=== PATIENT | female | born 1970 | race Caucasian/White ===

== ENCOUNTER 2021-03-01 15:19 | Outpatient (CLI) | payer OTHER, SELFPAY ==
--- NOTE | ~2021-03-01 | XR_ITS ---
EXAMINATION: XR hand BI arthritis min 3V EXAM DATE: 03/01/2021 15:55 INDICATION: Rheumatoid arthritis multiple sites with negative rheumatoid factor. TECHNIQUE: Right hand frontal, lateral and oblique projections obtained and reviewed. Left hand fron lyudmila, lateral and oblique projections obtained and reviewed. Catchers projection of both hands. Compar deborah is made to prior examination from 02/14/2006. FINDINGS: Right hand: There are no bony erosions identified. Minimal osteoarthritis of the 2nd and 3rd distal i nterphalangeal joints.There are no acute fractures identified. No radiopaque foreign bodies identifie d. Left hand: There are no bony erosions identified. The joint spaces are uniform. There are no acute fractures identified. No radiopaque foreign bodies identified. IMPRESSION: 1. Minimal right 2nd, 3rd DIP osteoarthritis. 2. No erosions. Reviewed, dictated and finalized at location A.
== END 2021-03-01 15:20 | disposition home or self-care (01) ==
PROVIDERS: PCP Family Medicine
DX: M06.09 Rheumatoid arthritis without rheumatoid factor, multiple sites (principal)
CPT/HCPCS: 73130

== ENCOUNTER 2023-03-17 13:45 | Outpatient (CLI) | payer OTHER, SELFPAY ==
--- NOTE | ~2023-03-17 | XR_ITS ---
EXAM: XR foot RT min 3V DATE: 03/17/2023 14:08 HISTORY: HIGH RISK MEDICATION USE, PAIN OF RT KNEE/FOOT . COMPARISON: None available. FINDINGS: Normal mineralization. No fracture or dislocation. No lytic or blastic lesion. Mild degene rative change at the first MTP joint and multiple midfoot joints. Moderate plantar and mild Achilles enthesopathy. No erosion or periosteal change. Soft tissues within normal limits. IMPRESSION: Mild particular osteoarthritis in the right foot. Reviewed, dictated and finalized at location K. ARD/STEWARDESS SECOND CLASS
--- NOTE | ~2023-03-17 | XR_ITS ---
EXAM: XR hand RT min 3V DATE: 03/17/2023 14:08 HISTORY: HIGH RISK MEDICATION USE, PAIN OF RT KNEE/FOOT . COMPARISON: None available. FINDINGS: Normal mineralization. No fracture or dislocation. No lytic or blastic lesion. Scattered m ild degenerative changes, typical of osteoarthritis, best seen in the DIP and PIP joints of the finge rs. No erosion or periosteal change. Soft tissues within normal limits. IMPRESSION: Mild polyarticular osteoarthritis. Reviewed, dictated and finalized at location K. [employer]
--- NOTE | ~2023-03-17 | XR_ITS ---
EXAM: XR knee RT 3V DATE: 03/17/2023 14:08 HISTORY: HIGH RISK MEDICATION USE, PAIN OF RT KNEE/FOOT . COMPARISON: 09/02/2011. FINDINGS: Decreased mineralization. Status post ACL repair. Tricompartmental osteophytosis, moderate in the medial and lateral compartments, severe in the patellofemoral compartment. Moderate lateral c ompartment joint space narrowing. Medial and lateral compartment chondrocalcinosis. IMPRESSION: Tricompartmental arthritic changes in the right knee, severe in the patellofemoral compar tment. Reviewed, dictated and finalized at location K. UAGE TEACHER IMPRESSION: Tricompartmental arthritic changes in the right knee, severe in the patellofemoral compartment.
--- NOTE | ~2023-03-17 | XR_ITS ---
EXAM: XR hand LT min 3V DATE: 03/17/2023 14:08 HISTORY: HIGH RISK MEDICATION USE, PAIN OF RT KNEE/FOOT . COMPARISON: 03/01/2021. FINDINGS: Normal mineralization. No fracture or dislocation. No lytic or blastic lesion. Scattered m ild arthritic changes, typical of osteoarthritis, best seen in the PIP joints and DIP joints of the f ingers. No erosion or periosteal change. Soft tissues within normal limits. IMPRESSION: Mild polyarticular osteoarthritis. Reviewed, dictated and finalized at location K. RS ASSEMBLER
== END 2023-03-17 13:46 | disposition home or self-care (01) ==
LOC: ANHIMG 13:47
PROVIDERS: PCP Family Medicine; Visit Provider Family Medicine
DX: Z79.899 Other long term (current) drug therapy (principal); M19.071 Primary osteoarthritis, right ankle and foot; M19.041 Primary osteoarthritis, right hand; M19.042 Primary osteoarthritis, left hand; M17.11 Unilateral primary osteoarthritis, right knee
CPT/HCPCS: 73130; 73562; 73630

== ENCOUNTER 2024-02-15 13:59 | Emergency (ER) | payer OTHER, SELFPAY ==
--- NOTE | ~2024-02-15 | XR_ITS ---
EXAMINATION: XR chest 2V 02/15/2024 14:43 INDICATION: Cough with wheezing PROCEDURE: 2 view chest COMPARISON: 03/10/2011 FINDINGS: The lungs are clear. The cardiomediastinal silhouette is within normal limits. There are no pleural effusions. There is no pneumothorax suspected. IMPRESSION: 1: NO ACUTE CARDIOPULMONARY DISEASE. Reviewed, dictated and finalized at location B.
--- NOTE | 2024-02-15 14:12 | ED.URI ---
HPI - URI/Sore Throat General Chief Complaint: Upper Respiratory Infection Stated Complaint: SOB Time Seen by Provider: 02/15/24 14:18 Source: patient, RN notes reviewed and old records reviewed Mode of arrival: ambulatory Limitations: no limitations History of Present Illness HPI Narrative: 53-year-old female presents to the [facility] with complaints of cough since Sunday, 2 days, wheezing at night. Has tried Sudafed and Zyrtec Related Data Home Medications Medication Instructions Recorded Confirmed cetirizine 10 mg capsule (Zyrtec) 10 mg PO DAILY PRN Allergy Symptoms 11/07/23 02/15/24 etanercept 50 mg/mL (1 mL) 50 mg subcut WEEKLY 11/07/23 02/15/24 subcutaneous syringe (Enbrel) multivitamin 1 tablet PO DAILY 11/07/23 02/15/24 pantoprazole 40 mg tablet,delayed 40 mg PO QAM 11/07/23 02/15/24 release pilocarpine HCl 5 mg tablet 5 mg PO TID 11/07/23 02/15/24 pseudoephedrine HCl 30 mg tablet 30 mg PO Q4-6H PRN Allergy Symptoms 11/07/23 02/15/24 (Sudafed) sulfasalazine 500 mg tablet 1 g PO BID 11/07/23 02/15/24 Allergies Allergy/AdvReac Type Severity Reaction Status Date / Time Cephalosporins AdvReac Mild Hives Verified 02/15/24 14:27 Penicillins AdvReac Mild Hives Verified 02/15/24 14:27 Review of Systems Review of Systems: All systems reviewed & are unremarkable except as noted in HPI and below Constitutional: Constitutional: Reports no additional constitutional complaints Eyes: Eyes: Reports no additional eye complaints ENT: Reports system reviewed and no additional complaints, except as documented Cardiovascular: Cardiovascular: Reports no additional cardiovascular complaints, Denies chest pain and Denies dyspnea Respiratory: Respiratory: Reports as per HPI, Denies chest congestion, Reports cough, Denies dyspnea and Reports wheezing Gastrointestinal: Gastrointestinal: Reports no additional gastrointestinal complaints, Denies abdominal pain, Denies nausea and Denies vomiting Musculoskeletal: Musculoskeletal: Reports no additional musculoskeletal complaints Integumentary/Breasts: Skin/Breast: Reports system reviewed and no additional complaints, except as docu Neurologic: Reports system reviewed and no additional complaints, except as documented Psychiatric: Psychiatric: Reports no additional psychiatric complaints Allergic/Immunologic: Allergic/Immunologic: Reports no additional allergic/immunologic complaints PMFSH Past Medical History Medical History Lupus Rheumatoid arthritis Surgical History Surgical History History of knee surgery x7 Family History Family History Mother Family history of migraine headaches Sibling Family history of eczema Patient's sister is in good health Family history of hearing loss Father Patient's father is in good health Grandparent Family history of malignant neoplasm, Onset Age: 60 Social History Social History Smoking status: Never smoker Alcohol intake: never Substance use type: does not use Do You Feel Safe in your Home?: Yes Lack of Transportation: No Lack of Food: Never True Current Housing: Decline to Answer Concerned About Future Housing: Decline to Answer Difficulty Paying Gas/Electric Bills: Decline to Answer Difficulty Paying for Meds: Decline to Answer Currently Unemployed: Decline to Answer Education: High School Diploma/GED Difficulty w/ Childcare or Family Care: No Comments At the time of my signature, I reviewed and agree with the nursing past medical, surgical, social, and family history. There is no relevant family history pertinent to the patient complaint. Exam Const: General: cooperative, healthy appearing, comfortable, no acute distress, well developed, alert and well nourish
[2024-02-15 14:17] VITALS: BP 151/75; PULSE 101; RESP 17; TEMP 36.8; O2SAT 99
== END 2024-02-15 14:56 | disposition home or self-care (01) ==
PROVIDERS: Emergency Provider Nurse Practitioner; PCP Family Medicine
DX: J40 Bronchitis, not specified as acute or chronic (principal); J06.9 Acute upper respiratory infection, unspecified; Z79.899 Other long term (current) drug therapy
CPT/HCPCS: 71046; 99213; G0463

== ENCOUNTER 2024-11-06 08:05 | Outpatient (CLI) | payer OTHER, SELFPAY ==
--- NOTE | ~2024-11-06 | MR_ITS ---
MRI of the left shoulder Technique: Axial proton-density fat-sat images, coronal proton density fat-sat and T2 fat-sat images, and sagittal T1-weighted and T2 fat-sat images were acquired. Clinical History: Other signs and symptoms of musculoskeletal system Findings: There is mild AC joint degenerative change. Coracoclavicular, coracoacromial, and coracohum eral ligaments are intact. There is moderate to advanced supraspinatus and infraspinatus tendinosis, without partial or full-thi ckness tear. Subscapularis tendon is intact with linear low-grade interstitial tear. Tendon of long h ead of the biceps is intact. No labral tear evident. Inferior glenohumeral ligament is intact. No degenerative change or effusion of the glenohumeral join t. No fluid distention of the subacromial/subdeltoid bursa. No muscle atrophy or edema. Impression: Moderate to advanced tendinosis of the supraspinatus and infraspinatus tendons, as above. Linear low-grade interstitial tear of the subscapularis tendon. Mild AC joint degenerative change. Reviewed, dictated and finalized at location . Impression: Moderate to advanced tendinosis of the supraspinatus and infraspinatus tendons, as above. Linear low-grade interstitial tear of the subscapularis tendon. Mild AC joint degenerative change.
--- NOTE | ~2024-11-06 | MR_ITS ---
MRI of the cervical spine Clinical History: Radiculopathy Technique: Axial T2-weighted and gradient images, and sagittal T1-weighted, T2-weighted, and STIR juan ges were acquired. Findings: No fracture of cervical spine is seen. There is 2 mm anterolisthesis of C4 over C5. No bone marrow signal abnormality identified. At C2-C3, there is no disc bulge or herniation. No spinal canal stenosis, cord compression, or neural foraminal narrowing. There is minimal facet hypertrophy. At C3-C4, there is mild disc osteophyte complex with bilateral facet arthropathy. There is bilateral neural foraminal narrowing, left worse than right. There is mild canal stenosis without giselle cord co mpression. At C4-C5, there is disc osteophyte complex. There is mild to moderate canal stenosis without giselle co rd compression. There is bilateral neural foraminal narrowing. At C5-C6, there is disc osteophyte complex with mild to moderate canal stenosis but no giselle cord com pression. There is severe bilateral neural foraminal narrowing. At C6-C7, there is no disc bulge or herniation. No spinal canal stenosis, cord compression, or neural foraminal narrowing. No abnormal signal seen in the spinal cord. Paravertebral soft tissues are unremarkable. Impression: Moderate to advanced degenerative spondylosis, especially at C3-C4, C4-C5, and C5-C6. Please see deta ils above. 2 mm anterolisthesis of C4 over C5. Reviewed, dictated and finalized at [facility]. Impression: Moderate to advanced degenerative spondylosis, especially at C3-C4, C4-C5, and C5-C6. Please see details above. 2 mm anterolisthesis of C4 over C5.
== END 2024-11-06 08:06 | disposition home or self-care (01) ==
PROVIDERS: PCP Family Medicine; Visit Provider Physician Assistant Surgical
DX: R29.898 Other symptoms and signs involving the musculoskeletal system (principal); M19.012 Primary osteoarthritis, left shoulder; M47.22 Other spondylosis with radiculopathy, cervical region
CPT/HCPCS: 72141; 73221

== ENCOUNTER 2024-12-01 20:26 | Emergency (ER) | payer OTHER, SELFPAY ==
--- NOTE | ~2024-12-01 | XR_ITS ---
HISTORY: pain to medial and lateral malleolus COMPARISON: None TECHNIQUE: 3 views of the left ankle were performed FINDINGS: No acute fracture or dislocation. No significant soft tissue swelling. The ankle mortise is preserved. Bone mineralization is age-appropriate. IMPRESSION: No acute fracture or dislocation. Reviewed, dictated and finalized at location A.
--- NOTE | ~2024-12-01 | XR_ITS ---
HISTORY: pain to calcaneus COMPARISON: 01/01/2013 TECHNIQUE: 3 views of the left foot were performed FINDINGS: No acute fracture or dislocation is appreciated. Mild degenerative disease is noted. The base of the fifth metatarsal is intact. Moderate calcaneal spur is noted. No significant soft tissue swelling is present. IMPRESSION: Degenerative disease without acute fracture. Calcaneal spur is unchanged from 2012. Reviewed, dictated and finalized at location A.
--- NOTE | ~2024-12-01 | XR_ITS ---
HISTORY: pain to calf and distal tib/fib COMPARISON: None TECHNIQUE: 2 views of the left tibia and fibula were performed FINDINGS: No acute or subacute fracture. Medial tibiofemoral joint space narrowing is present, incompletely evaluated. Remaining joint spaces are preserved and alignment is maintained. Soft tissues are unremarkable without radiopaque foreign body or significant calcification. Age-appropriate mineralization. IMPRESSION: No acute fracture or dislocation within the left tibia and fibula, as detailed above. Reviewed, dictated and finalized at location A.
--- OUTSIDE RECORDS SUMMARY | 2024-12-01 20:29 | XMS_ITS | Clinical Summary ---
Author Organization [facility] Address [address] [place] [address] Care Team Providers Care Sales Administration Manager Name Role Phone Jonas Blanco MD Primary Care Provider [phone] Allergies Active Allergy Reactions Criticality Noted Date Comments Cephalosporins Hives Medium 04/20/2014 Leflunomide Other (See comments) Low 06/18/2017 Penicillins Hives Medium 03/10/2013 Medications fluticasone propionate (FLONASE) 50 mcg/actuation nasal spray USE DIRECTED. 03/10/20 13 Active lisinopril (PRINIVIL,ZESTRIL) 10 mg tablet 11/21/[address] (PROTONIX) 40 mg EC tablet BID Active cetirizine 10 mg tablet,disintegrat ing TAKE 1 TABLET DAILY NEEDED. Active pilocarpine (SALAGEN) 5 mg tablet Take 1 tablet (5 mg total) by mouth 3 (three) times a day 270 tablet 1 04/07/20 24 Active EnbreL Mini 50 mg/mL (1 mL) cartridgeIndicatio ns:Sjogren's syndrome without extraglandular involvement INJECT 50 MG (1 ML) UNDER THE SKIN ONCE A WEEK 12 mL 1 09/30/19 25 Active sulfaSALAzine (AZULFIDINE) 500 mg tabletIndications: Sjogren's syndrome without extraglandular involvement Take 2 tablets by mouth twice daily 120 tablet 11/06/19 25 Active sulfaSALAzine (AZULFIDINE) 500 mg tabletIndications: Sjogren's syndrome without extraglandular involvement Take 2 tablets by mouth twice daily 120 tablet 10/09/19 25 025 Discontinued Active Problems Problem Noted Date Diagnosed Date 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 VA acceptable cc today but discussed RGP/scleral lenses would ultimately likely improve vision and that scar will fade over time. Pt interested in wearing RGPs again. Rec getting new set of RGPs to prevent recurrent infection/contamination of ocular surface. Discussed that risk of ulcer higher with any CTL use and to reduce use of RGPs to ultimately reduce infection risk. Pt interested in reducing risk. Discussed ok to use Moxi BID while in lenses, but that this is not typically prescribed for this. Pt interested in daily wear soft lenses. Unsure if available in Rx needed, but suggested she inquire and that we have Dr. Hirsch available here for CTL eval. Can stop moxi. RTC PRN. rtc ppx given Assessment & Plan (05/05/2020 3:22 PM BOTTOM CAGER): Hx ulcer OD ED healed on fortifieds. Cx NGTD Swtich to moxi QID. RTC 2 weeks. Assessment & Plan (04/26/2020 2:19 PM BOTTOM CAGER): - onset 04/03/20. Worsened on polytrim/PF. No improvement on q1h besifloxacin + polytrim - in setting of RGP use (but not sleeping in them) - Hx lupus/RA on plaquenil and sulfasalazine. Ok to CPM. Rec regular ocular screenings when ulcer resolved. Today, improved with smaller infiltrate/ED. Plan - bacteria/fungus cultures NGTD - Fortified vanc/tobra to Q3hr WA together x 4-5 days then Q4hr WA until next visit - Discussed prognosis and advised against CTL use in the future if at all tolerable, but pt extreme myope. RTC ~8-10 days [facility], sooner PRN Assessment & Plan (04/21/2020 3:07 PM BOTTOM CAGER): - onset 04/03/20. Worsened on polytrim/PF. No improvement on q1h besifloxacin + polytrim - in setting of RGP use (but no sleeping in them) Plan - bacteria/fungus cultures NGTD - vanc q2h on the evens - tobra q2h on the odds [facility] PRN Assessment & Plan (04/20/2020 10:44 AM BOTTOM CAGER): - onset 04/03/20. Worsened on polytrim/PF. No improvement on q1h besifloxacin + polytrim - in setting of RGP use (but no sleeping in them) Plan - bacteria/fungus cultures obtained today OD - vanc q2h on the evens - tobra q2h on the odds RTC [facility] sooner PRN Sjogren's syndrome without extraglandular involv ement 10/21/2018 Resolved Problems Problem Noted Date Diagnosed Date Resolved Date Dry mouth 10/21/2018 10/21/2018 Encounters Date Type Department Care Team Description 11/12/2024 Telephone [facility] Diabetes and Endocrinology [address] [place] [id number] Noemy Solorio MD New Referral to Endocrinology 09/15/2024 Results Follow-Up [facility] Rheumatology [address] [facility] [address] [place] [address] Kath Rashid MD CBC with auto differential, Comprehensive metabolic panel from Last 3 Months Surgical History Surgery Date Site/Laterality Comments MA CAUTERY CERVIX CRYOCAUTER Y INITIAL/REPEAT Cervix Cryosurgery - (Added by TW Conv) BREAST BIOPSY Left Medical History Medical History Date Comments Personal history of other di seases of the musculoskeletal system and connective tissue History of arthritis - (Adde d by TW Conv) Family History Medical History Relation Name Comments Heart attack Father Family history of myocardial infarction - (Added by TW Conv) Cerebral aneurysm Mother Family his tory of cerebral aneurysm - (Added by TW Conv) Heart disease Paternal Grandfather Family history of heart disease - (Added by TW Conv) Lupus Sister Family history of systemic lupus erythematosus - (Added by TW Conv) Relation Name Status Comments Father Mother Paternal Grandfather Sister Social History Tobacco Use Types Packs/Day Years Used Date Smoking Tobacco: Never Smokeless Tobacco: Never Tobacco Cessation:Counseling Given: Not Answered Alcohol Use Standard Drinks/Week Comments No 0 (1 standard drink = 0.6 oz pur e alcohol) AUDIT-C Answer Date Recorded Q1: How often do you have a drink containing alc ohol? Never 04/07/2024 Average Number of Drinks Not on file 024 Frequency of Binge Drinking Not on file 12/2023 Comments Unknown Sex and Gender Information Value Date Recorded Sex Assigned at Not on file Legal Sex Female 7:04 AM BOTTOM CAGER Gender Identity Not on file Sexual Orientation Not on file Obstetrics History Para Term AB IAB SAB Ectopic Multiple Livin g Live Births 2 1 1 Date Outcome GA Total Labor Labor/2nd/3rd Weight Sex Type Anes PTL Lucy A1 A5 Name Clin Term Last Filed Vital Signs Vital Sign Reading Time Taken Comments Blood Pressure 138/82 04/07/2024 11:35 AM BOTTOM CAGER Pulse 95 04/07/2024 11:35 AM BOTTOM CAGER Temperature 36.8 C (98.2 F) 04/07/2024 11:35 AM BOTTOM CAGER Respiratory Rate - - Oxygen Saturation 98% 04/07/2024 11:35 AM BOTTOM CAGER Inhaled Oxygen Concentration - - Weight 106.6 kg (235 lb) 04/07/2024 11:35 AM BOTTOM CAGER Height 177.8 cm (5' 10) 04/07/2024 11:35 AM BOTTOM CAGER Body Mass Index 33.72 04/07/2024 11:35 AM BOTTOM CAGER Plan of Treatment Health Maintenance Due Date Last Done Comments Cervical Cancer Screening 1968 Colon Cancer Screening-Colonoscopy 1968 Depression Screening 1968 Hepatitis B Screening 1986 Regular Well Visit/Exam 18-64 1986 Zoster Vaccine (1 of 2) 2018 Breast Cancer Screening-Mammogram 11/19/2024 11/20/2023, 11/17/2022, 11/02/2021, Additional history exists Influenza Vaccine (#1) 2024 , 02/19/2023, 02/19/2023, Additional history exists DTaP/Tdap/Td Vaccine (3 - Td or Tdap) 12/09/2030 12/09/2020, 12/02/2016 Hepatitis C Screening Completed 02/28/2021 Pneumococcal vaccine <65 Aged Out 03/29/2023 No longer eligible based on patient's age to complete this topic Procedures Procedure Name Priority Date/Time Associated Diagnosis Comments COMPREHENSIVE METABOLIC PANEL Routine 09/13/2024 12:03 PM CDT High risk medication use CBC WITH AUTO DIFFERENTIAL Routine 09/13/2024 12:01 PM CDT High risk medication use SCREENING MAMMOGRAM BILATERAL [place] Schedule Routine, Read Routine (OP Routine) 11/20/2023 11:32 AM CDT Screening mammogram, encounter for HEPATITIS C ANTIBODY Routine 02/28/2021 3:55 PM CDT from Last 3 Months or Most Recently Relevant to Health Maintenance Results * (ABNORMAL) Comprehensive metabolic panel (09/13/2024 12:03 PM CDT) Glucose 88 70 - 99 mg/dL [facility] - 01 BUN 12 6 - 24 mg/dL [facility] - 01 Creatinine, Serum 1.04(H) 0.57 - 1.00 mg/dL [facility] - 01 eGFR 63 >59 mL/min/1.7 3 [facility] - 01 BUN/creat ratio 12 9 - 23 [facility] - 01 Sodium 143 134 - 144 mmol/L [facility] - 01 Potassium, sr 4.8 3.5 - 5.2 mmol/L [facility] - 01 Chloride 107(H) 96 - 106 mmol/L [facility] - 01 CO2 19(L) 20 - 29 mmol/L [facility] - 01 Calcium 10.9(H) 8.7 - 10.2 mg/dL [facility] - 01 Protein, sr 6.5 6.0 - 8.5 g/dL [facility] - 01 Albumin 4.3 3.8 - 4.9 g/dL [facility] - 01 Globulin, Total 2.2 1.5 - 4.5 g/dL [facility] - 01 Bilirubin, Total 0.6 0.0 - 1.2 mg/dL [facility] - 01 Alk phos 114 44 - 121 IU/L [facility] - 01 AST 22 0 - 40 IU/L [facility] - 01 ALT 21 0 - 32 IU/L [facility] - 01 Blood 09/13/2024 12:0 3 PM CDT 09/13/2024 Narrative [facility] - 09/14/2024 6:41 AM CDT Performed at: - [address], [place], [place] [id number] Ethylene Plant Operator: Jaycob Jefferson PhD, Phone: [phone] us Kath Rashid MD LAB BLOOD ORDERABLES Final Result [facility] - 01 * (ABNORMAL) CBC with auto differential (09/13/2024 12:01 PM CDT) Pathologist [facility] WBC 4.5 3.4 - 10.8 x10E3/uL [facility] - 01 RBC 4.31 3.77 - 5.28 x10E6/uL [facility] - 01 Hgb 12.1 11.1 - 15.9 g/dL [facility] - 01 Hct 38.7 34.0 - 46.6 % [facility] - 01 MCV 90 79 - 97 fL [facility] - 01 MCH 28.1 26.6 - 33.0 pg [facility] - 01 MCHC 31.3(L) 31.5 - 35.7 g/dL [facility] - 01 Rdw 12.2 11.7 - 15.4 % [facility] - 01 Platelets 267 150 - 450 x10E3/uL [facility] - 01 Neutrophils pct 38 Not Estab. % [facility] - 01 Lymphs pct 48 Not Estab. % [facility] - 01 Monocytes pct 12 Not Estab. % [facility] - 01 Eosinophils pct 1 Not Estab. % [facility] - 01 Basophil pct 1 Not Estab. % [facility] - 01 Neutrophil abs 1.7 1.4 - 7.0 x10E3/uL [facility] - 01 Lymphs (Absolute) 2.1 0.7 - 3.1 x10E3/uL [facility] - 01 Monocyte abs 0.6 0.1 - 0.9 x10E3/uL [facility] - 01 Eosinophils, abs 0.1 0.0 - 0.4 x10E3/uL [facility] - 01 Basophils, abs 0.0 0.0 - 0.2 x10E3/uL [facility] - 01 Immature Granulocytes 0 Not Estab. % [facility] - 01 Immature Grans (Abs) 0.0 0.0 - 0.1 x10E3/uL [facility] - 01 Blood 09/13/2024 12:0 1 PM CDT 09/13/2024 Narrative [facility] - 09/14/2024 8:09 AM CDT Performed at: - [facility] [address] [id number] Eth[employer] Plant Operator: Jaycob Jefferson PhD, Phone: [phone] us Kath Rashid MD LAB BLOOD ORDERABLES Final Result [facility] - 01 * Screening Mammogram Bilateral [place] (11/20/2023 11:32 AM CDT) Anatomical Region Laterality Modality Breast Bilateral Mammography Narrative 11/21/2023 11:08 AM CDT Mammogram Technique: Bilateral Digital Breast Tomosynthesis, Bilateral C-view 2D Screening mammogram. Views obtained: bilateral craniocaudal and bilateral mediolateral oblique. Computer Aided Detection was performed. Mammogram Findings: The present examination has been compared to prior imaging studies performed at [facility] on 11/17/2022, and at [facility] on 05/24/2020 and 11/02/2021. There are scattered areas of fibroglandular density. There is no suspicious abnormality in either breast. Impression: There is no mammographic evidence of malignancy. Annual screening mammography is recommended. OVERALL FINAL ASSESSMENT: BI-RADS CATEGORY 1: Negative. Procedure Note Whit Farias MD - 11/21/2023 Mammogram Technique: Bilateral Digital Breast Tomosynthesis, Bilateral C-view 2D Screening mammogram. Views obtained: bilateral craniocaudal and bilateral mediolateral oblique. Computer Aided Detection was performed. Mammogram Findings: The present examination has been compared to prior imaging studies performed at [facility], [facility]. There are scattered areas of fibroglandular density. There is no suspicious abnormality in either breast. Impression: There is no mammographic evidence of malignancy. Annual screening mammography is recommended. OVERALL FINAL ASSESSMENT: BI-RADS CATEGORY 1: Negative. Self Screening Mammogram IMG MAMMO PROCEDURES Fi nal Result * Hepatitis C antibody (02/28/2021 3:55 PM CDT) Hep C Ab <0.1 0.0 - 0.9 s/co ratio [facility] - Comment: Negative: < 0.8 Indeterminate: 0.8 - 0.9 Positive: > 0.9 The CDC recommends that a positive HCV antibody result be followed up with a HCV Nucleic Acid Amplification test (503107). 02/28/2021 3:55 PM CDT 02/28/2021 Narrative [facility] - 03/08/2021 12:06 AM BOTTOM CAGER Performed at: [facility] [id number] Eth[employer] Plant Operator: Jaycob Jefferson PhD, Phone: [phone] Kath Rashid MD LAB MICROBIOLOGY - GENERAL ORDERABLES Final Result [facility] - 01 from Last 3 Months or Most Recently Relevant to Health Maintenance Insurance [facility]O Address: [place] [address] [facility]O Address: [place] [address] Care Teams Sales Administration Manager Relationship Specialty Start Date End Date Jonas Blanco MD [address] [place] [address] [place] [address] PCP - General Family Medicine 09/20/21
--- OUTSIDE RECORDS SUMMARY | 2024-12-01 20:29 | XMS_ITS | Encounter Summary ---
Author Organization [facility] [employer] of [facility] Address [address] [place] [address] Phone Care Team Providers Care Mid Level Java Developer Name Role Phone Argelia Allen MD Primary Care Provider + Jonas Blanco MD Primary Care Provider [phone] Encounter Details Date Type Department Care Team (Late st Contact Info) Description 03/01/2021 Orders Only [facility] Scanning, Provider Social History Tobacco Use Types Packs/Day Years Used Date Smoking Tobacco: Never Smokeless Tobacco: Never Alcohol Use Standard Drinks/Week Comments No 0 (1 standard drink = 0.6 oz pur e alcohol) AUDIT-C Answer Date Recorded Q1: How often do you have a drink containing alc ohol? 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 Gender Identity Not on file Sexual Orientation Not on file documented as of this encounter Plan of Treatment Not on file documented as of this encounter Procedures Procedure Name Priority Date/Time Associated Diagnosis Comments SCAN - RADIOLOGY/IMAGING 03/01/2021 documented in this encounter Results * SCAN - RADIOLOGY/IMAGING (03/01/2021) Anatomical Region Laterality Modality Other us Provider Scanning Final Result documented in this encounter Visit Diagnoses Not on filedocumented in this encounter Care Teams Mid Level Java Developer Relationship Specialty Start Date End Date Argelia Allen MD PCP - General 04/29/17 09/19/21 Jonas Blanco MD [address] [facility] [place] [address] PCP - General Family Medicine 09/20/21 documented as of this encounter
--- OUTSIDE RECORDS SUMMARY | 2024-12-01 20:29 | XMS_ITS | Encounter Summary ---
Author Organization [facility] [employer] [facility] Address [address] [place] [address] Phone Care Team Providers Care Manager Gallery Name Role Phone Jonas Blanco MD Primary Care Provider [phone] Encounter Details Date Type Department Care Team (Late st Contact Info) Description 03/17/2023 Orders Only [facility] Scanning, Provider Social History Tobacco Use Types Packs/Day Years Used Date Smoking Tobacco: Never Smokeless Tobacco: Never Alcohol Use Standard Drinks/Week Comments No 0 (1 standard drink = 0.6 oz pur e alcohol) AUDIT-C Answer Date Recorded Q1: How often do you have a drink containing alcohol? Never 02/26/2023 Q2: How many drinks containi ng alcohol do you have on a typical day when you are drinking? Patient does not drink Frequency of Binge Drinking Not on file 01/30 Comments Unknown Sex and Gender Information Value Date Recorded Sex Assigned at Not on file Legal Sex Female 7:04 AM PHOTO SPECIALIST Gender Identity Not on file Sexual Orientation Not on file documented as of this encounter Plan of Treatment Not on file documented as of this encounter Procedures Procedure Name Priority Date/Time Associated Diagnosis Comments SCAN - RADIOLOGY/IMAGING 03/17/2023 documented in this encounter Results * SCAN - RADIOLOGY/IMAGING (03/17/2023) Anatomical Region Laterality Modality Other us Provider Scanning Final Result documented in this encounter Visit Diagnoses Not on filedocumented in this encounter Care Teams Manager Gallery Relationship Specialty Start Date End Date Jonas Blanco MD [address] [facility] [place] [address] PCP - General Family Medicine 09/20/21 documented as of this encounter
--- OUTSIDE RECORDS SUMMARY | 2024-12-01 20:29 | XMS_ITS | Referral Summary ---
Author Organization [facility] Address [address] [place] [address] Care Team Providers Care Recoating Machine Operator Name Role Phone Jonas Blanco MD Primary Care Provider [phone] Encounters Date Type Department Care Team Description 11/12/2024 Telephone [facility] Medical Group Diabetes and Endocrinology [address] [place] [phone] Noemy Solorio MD New Referral to Endocrinology 09/15/2024 Results Follow-Up [facility] Rhe[facility] [address] [facility] Office Building [address] [place] [address] Kath Rashid MD CBC with auto differential, Comprehensive metabolic panel from Last 3 Months Allergies Active Allergy Reactions Criticality Noted Date [...] 020 Assessment & Plan (05/17/2020 9:19 AM DIESEL INSPECTOR): Healed with focal flattening and anterior stromal [...] given Assessment & Plan (05/05/2020 3:22 PM DIESEL INSPECTOR): Hx ulcer OD ED healed on fortifieds. Cx NGTD Swtich to moxi QID. RTC 2 weeks. Assessment & Plan (04/26/2020 2:19 PM DIESEL INSPECTOR): - onset 04/03/20. Worsened on polytrim/PF. No [...] but pt extreme myope. RTC ~8-10 days [facility], sooner PRN Assessment & Plan (04/21/2020 3:07 PM DIESEL INSPECTOR): - onset 04/03/20. Worsened on polytrim/PF. No improvement on q1h besifloxacin + polytrim - in setting of RGP use (but no sleeping in them) Plan - bacteria/fungus cultures NGTD - vanc q2h on the evens - tobra q2h on the [facility] PRN Assessment & Plan (04/20/2020 10:44 AM DIESEL INSPECTOR): - onset 04/03/20. Worsened on polytrim/PF. No improvement on q1h besifloxacin + polytrim - in setting of RGP use (but no sleeping in them) Plan - bacteria/fungus cultures obtained today OD - vanc q2h on the evens - tobra q2h on the [facility] RTC 1 day, [facility] 1430, sooner PRN Sjogren's syndrome without extraglandular involv ement 10/21/2018 Resolved Problems Problem Noted Date Diagnosed Date Resolved Date Dry mouth 10/21/2018 10/21/2018 Social History Tobacco Use Types Packs/Day Years [...] on file Legal Sex Female 7:04 AM DIESEL INSPECTOR Gender Identity Not on file Sexual Orientation Not on file Last Filed Vital Signs Vital Sign Reading Time Taken Comments Blood Pressure 138/82 04/07/2024 11:35 AM DIESEL INSPECTOR Pulse 95 04/07/2024 11:35 AM DIESEL INSPECTOR Temperature 36.8 C (98.2 F) 04/07/2024 11:35 AM DIESEL INSPECTOR Respiratory Rate - - Oxygen Saturation 98% 04/07/2024 11:35 AM DIESEL INSPECTOR Inhaled Oxygen Concentration - - Weight 106.6 kg (235 lb) 04/07/2024 11:35 AM DIESEL INSPECTOR Height 177.8 cm (5' 10) 04/07/2024 11:35 AM DIESEL INSPECTOR Body Mass Index 33.72 04/07/2024 11:35 AM DIESEL INSPECTOR Plan of Treatment Not on file Procedures Procedure Name Priority Date/Time Associated Diagnosis [...] - 09/14/2024 6:41 AM CDT Performed at: [address] [place] [id number] Cath Lab Tech: Jaycob Jefferson PhD, Phone: [phone] us Kath Rashid MD LAB BLOOD ORDERABLES Final Result [facility] - 01 * (ABNORMAL) CBC with auto differential (09/13/2024 12:01 PM CDT) Pathologist [facility] WBC 4.5 3.4 - 10.8 x10E3/uL [facility] [...] - 09/14/2024 8:09 AM CDT Performed at: [address] [id number] Cath Lab Tech: Jaycob Jefferson PhD, Phone: [phone] Kath Rashid MD LAB BLOOD ORDERABLES Final Result Performing Organization Address City/State/[facility] Co de Phone Number [facility] - 01 * Screening Mammogram Bilateral [place] (11/20/2023 11:32 AM CDT) Anatomical Region Laterality Modality Breast Bilateral Mammography Narrative 11/21/2023 11:08 AM CDT Mammogram Technique: Bilateral Digital Breast Tomosynthesis, Bilateral C-view 2D Screening mammogram. Views obtained: bilateral craniocaudal and bilateral mediolateral oblique. Computer Aided Detection was performed. Mammogram Findings: The present examination has been compared to prior imaging studies performed at [facility]. [facility] on 11/17/2022, and at [facility] on 05/24/2020 and 11/02/2021. There are scattered [...] compared to prior imaging studies performed at [facility]. [facility] on 11/17/2022, [facility] on 05/24/2020 and11/02/2021. There are [...] 0.0 - 0.9 s/co ratio [facility] - 01 Comment: Negative: < 0.8 Indeterminate: 0.8 - 0.9 Positive: > 0.9 The CDC recommends that a positive HCV antibody result be followed up with a HCV Nucleic Acid Amplification test ([id number]). 02/28/2021 3:55 PM CDT 02/28/2021 Narrative [facility] - 03/08/2021 12:06 AM DIESEL INSPECTOR Performed at: - [facility] [address] [id number] Cath Lab Tech: Jaycob Jefferson PhD, Phone: [phone] Kath Rashid MD LAB MICROBIOLOGY - GENERAL ORDERABLES Final Result [facility] - 01 from Last 3 Months or Most Recently Relevant to Health Maintenance Insurance [id number] [id number] PLUS Care Teams Recoating Machine Operator Relationship Specialty Start Date End Date Jonas Blanco MD [address] [place] [address] PCP - General Family Medicine 09/20/21
[2024-12-01 21:40] VITALS: BP 147/79; PULSE 90; RESP 17; TEMP 36.4; O2SAT 100
--- NOTE | 2024-12-01 23:25 | ED.EXTPRO ---
HPI - Extremity Problem General Chief complaint: Extremity Problem,Nontraumatic Stated complaint: left heel pain Time Seen by Provider: 12/01/24 23:09 History of Present Illness HPI Narrative: 54-year-old female presents to the emergency department for left heel, ankle and calf pain after an injury that occurred today. Patient states she has known calcaneal spurs to her left foot. Today she was walking in the parking lot when she felt a pop in her left heel that radiates up into her calf. She is concerned she may have broken off her bones spur. She endorses some swelling to her ankle. Denies other injuries. Related Data Home Medications ?Medication ?Instructions ?Recorded ?Confirmed ?Last Taken ?Type cetirizine 10 mg capsule (Zyrtec) 10 mg PO DAILY PRN Allergy Symptoms 11/07/23 11/12/24 Unknown History etanercept 50 mg/mL (1 mL) 50 mg subcut WEEKLY 11/07/23 11/12/24 Unknown History subcutaneous syringe (Enbrel) multivitamin 1 tablet PO DAILY 11/07/23 11/12/24 Unknown History pantoprazole 40 mg tablet,delayed 40 mg PO QAM 11/07/23 11/12/24 Unknown History release pilocarpine HCl 5 mg tablet 5 mg PO TID 11/07/23 11/12/24 Unknown History Allergies Allergy/AdvReac Type Severity Reaction Status Date / Time Cephalosporins AdvReac Mild Hives Verified 12/01/24 23:01 Penicillins AdvReac Mild Hives Verified 12/01/24 23:01 Review of Systems Review of Systems: All systems reviewed & are unremarkable except as noted in HPI and below PMFSH Past Medical History Medical History Lupus Rheumatoid arthritis Surgical History Surgical History History of knee surgery x7 Family History Family History Mother Family history of migraine headaches Sibling Family history of eczema Patient's sister is in good health Family history of hearing loss Father Patient's father is in good health Grandparent Family history of malignant neoplasm, Onset Age: 60 Cerebrovascular accident Social History Social History Smoking status: Never smoker Alcohol intake: never Substance use type: does not use Do You Feel Safe in your Home?: Yes Lack of Transportation: No Lack of Food: Never True Current Housing: I Have Housing Concerned About Future Housing: No Difficulty Paying Gas/Electric Bills: No Difficulty Paying for Meds: No Currently Unemployed: No Education: High School Diploma/GED Difficulty w/ Childcare or Family Care: No Exam Narrative: GENERAL: Well-appearing, well-nourished, and in no acute distress. HEAD: Normocephalic, atraumatic. EYES: EOMI. ENT: Nares clear, no rhinorrhea or epistaxis. Mucous membranes moist. NECK: Supple. CHEST: Clear to auscultation. No respiratory distress. HEART: Regular rate and rhythm. No murmur heard. Normal peripheral pulses. EXTREMITIES: LLE: Tenderness over the calcaneus, medial and lateral malleolus and more notably over the Achilles tendon with palpable defect over the Achilles tendon. Patient is able to plantar flex and dorsiflex with increased pain. Tenderness to the left calf on palpation. Mild edema over the medial or lateral malleolus. DP pulses 2+. Gross sensation intact. Positive Turpin's test. Compartments soft SKIN: Warm, dry, no rash. NEURO: No focal deficits. Alert and oriented x3 Course Vital Signs Vital signs: Vital Signs Temperature 97.6 F 12/01/24 21:40 Pulse Rate 90 12/01/24 21:40 Respiratory Rate 17 12/01/24 21:40 Blood Pressure 147/79 H 12/01/24 21:40 Pulse Oximetry 100 12/01/24 21:40 Oxygen Delivery Room Air 12/01/24 21:40 Temperature 97.6 F 12/01/24 21:40 Pulse Rate 90 12/01/24 21:40 Respiratory Rate 17 12/01/24 21:40 Blood Pressure 147/79 H 12/01/24 21:40 Pulse Oximetry 100 12/01/24 21:40 Oxygen Delivery Room Air 12/01/24 21:40 MDM - Extremity (Nontraumatic) MDM Narrative Medical decision making narrative: 54-year-old female presents to emergency department for left heel, ankle and calf pain. Patient is ambulating today when she felt a pop near her heel and has had residual pain since. See HPI for further history. Vitals are stable. Exam is notable for the above. Specifically patient is having significant pain over the Achilles with palpable deformity and positive Turpin's test. Patient is neurovascularly intact. X-ray the foot shows degenerative disease without acute fracture calcaneal spur unchanged from 2013. X-ray of the tib-fib shows no acute fracture dislocation. X-ray the ankle shows no acute fracture dislocation. Patient was updated on results. Exam findings concerning for Achilles tendon injury. Patient placed in a short-leg posterior splint with ankle slightly plantar flexed and provided with crutches and oxycodone for breakthrough pain. Encouraged rice, nonweightbearing and follow-up with her orthopedist (she is established with Dr. Albarado.) Discussed strict ED return precautions. Patient is agreeable with the plan verbalized understanding. Discharged in stable condition. Discharge Plan Discharge Clinical Impression: Achilles tendon injury Qualifiers: Encounter type: initial encounter Laterality: left Qualified Code(s): S86.002A - Unspecified injury of left Achilles tendon, initial encounter Ankle sprain Qualifiers: Encounter type: initial encounter Involved ligament of ankle: unspecified ligament Laterality: left Qualified Code(s): S93.402A - Sprain of unspecified ligament of left ankle, initial encounter Patient Disposition: Home Condition: Stable Instructions: Antibiotic Form, Ankle Sprain (ED), Achilles Tendon Repair (DC) Additional Instructions: You were evaluated in the emergency department for an injury to her left lower extremity. The x-rays do not show any broken bones were your exam findings are concerning for an Achilles tendon injury as discussed. Please rest, ice, elevate keep your leg in the splint. Take 1000mg of tylenol every 6 hours as needed for pain. Do not exceed 4000mg of tylenol in a 24 hour period. Take oxycodone for breakthrough pain. Follow-up closely with your orthopedist. Return to the emergency department if you develops significantly worsening pain or other concerning symptoms. Patient Language: Sinhala Prescriptions: New oxycodone 5 mg capsule 5 mg PO Q6H PRN (Reason: pain) Qty: 14 0RF No Action Zyrtec 10 mg capsule 10 mg PO DAILY PRN (Reason: Allergy Symptoms) multivitamin Tablet 1 tablet PO DAILY pilocarpine HCl 5 mg tablet 5 mg PO TID pantoprazole 40 mg tablet,delayed release (DR/EC) 40 mg PO QAM Enbrel 50 mg/mL (1 mL) syringe 50 mg subcut WEEKLY diclofenac sodium 75 mg tablet,delayed release (DR/EC) 75 mg PO BID Qty: 60 2RF Follow-up/Referrals: Francis,MD Jonas [Primary Care Provider] - Livan Albarado MD [Physician] -
--- OUTSIDE RECORDS SUMMARY | 2024-12-02 00:08 | XMS_ITS | Encounter Summary ---
Author Organization [facility] [employer] [facility] Address [address] [place] [address] Phone Care Team Providers Care Gas Blender Name Role Phone Jonas Blanco MD Primary Care Provider [phone] Encounter Details Date Type Department Care Team [...] on file Legal Sex Female 7:04 AM DIGITAL ANALYTICS MANAGER Gender Identity Not on file Sexual Orientation [...] on filedocumented in this encounter Care Teams Gas Blender Relationship Specialty Start Date End Date Jonas Blanco MD [address] [place] [address] PCP - General Family Medicine 09/20/21 documented as of this encounter
--- OUTSIDE RECORDS SUMMARY | 2024-12-02 00:08 | XMS_ITS | Clinical Summary ---
Author Organization [facility] Address [address] [place] [address] Care Team Providers Care Personnel Clerk Name Role Phone Jonas Blanco MD Primary Care Provider [phone] Allergies Active Allergy Reactions Criticality Noted Date [...] 020 Assessment & Plan (05/17/2020 9:19 AM BULLET LUBRICANT MIXER): Healed with focal flattening and anterior stromal [...] given Assessment & Plan (05/05/2020 3:22 PM BULLET LUBRICANT MIXER): Hx ulcer OD ED healed on fortifieds. Cx NGTD Swtich to moxi QID. RTC 2 weeks. Assessment & Plan (04/26/2020 2:19 PM BULLET LUBRICANT MIXER): - onset 04/03/20. Worsened on polytrim/PF. No [...] PRN Assessment & Plan (04/21/2020 3:07 PM BULLET LUBRICANT MIXER): - onset 04/03/20. Worsened on polytrim/PF. No improvement on q1h besifloxacin + polytrim - in setting of RGP use (but no sleeping in them) Plan - bacteria/fungus cultures NGTD - vanc q2h on the evens - tobra q[facility]h [facility] PRN Assessment & Plan (04/20/2020 10:44 AM BULLET LUBRICANT MIXER): - onset 04/03/20. Worsened on polytrim/PF. No improvement on q1h besifloxacin + polytrim - in setting of RGP use (but no sleeping in them) Plan - bacteria/fungus cultures obtained today OD - vanc q2h on the evens - tobra q2h on the odds [facility] PRN Sjogren's syndrome without extraglandular involv ement 10/21/2018 Resolved Problems Problem Noted Date Diagnosed Date Resolved Date Dry mouth 10/21/2018 10/21/2018 Encounters Date Type Department Care Team Description 11/12/2024 Telephone [facility] Medical Group Diabetes and Endocrinology [address] [place] [phone] Noemy Solorio MD New Referral to Endocrinology 09/15/2024 Results Follow-Up [facility] Rheumatology [address] [facility] Medical Office Building [address] [place] [address] Kath Rashid MD CBC with auto differential, Comprehensive metabolic panel from Last 3 Months Surgical History Surgery Date Site/Laterality Comments IN CAUTERY CERVIX CRYOCAUTER Y INITIAL/REPEAT Cervix Cryosurgery [...] on file Legal Sex Female 7:04 AM BULLET LUBRICANT MIXER Gender Identity Not on file Sexual Orientation Not on file Obstetrics History Para Term AB IAB SAB Ectopic Multiple Livin g Live Births 2 1 1 Date Outcome GA Total Labor Labor/2nd/3rd Weight Sex Type Anes PTL Lucy A1 A5 Name Clin Term Last Filed Vital Signs Vital Sign Reading Time Taken Comments Blood Pressure 138/82 04/07/2024 11:35 AM BULLET LUBRICANT MIXER Pulse 95 04/07/2024 11:35 AM BULLET LUBRICANT MIXER Temperature 36.8 C (98.2 F) 04/07/2024 11:35 AM BULLET LUBRICANT MIXER Respiratory Rate - - Oxygen Saturation 98% 04/07/2024 11:35 AM BULLET LUBRICANT MIXER Inhaled Oxygen Concentration - - Weight 106.6 kg (235 lb) 04/07/2024 11:35 AM BULLET LUBRICANT MIXER Height 177.8 cm (5' 10) 04/07/2024 11:35 AM BULLET LUBRICANT MIXER Body Mass Index 33.72 04/07/2024 11:35 AM BULLET LUBRICANT MIXER Plan of Treatment Health Maintenance Due Date [...] 09/14/2024 6:41 AM CDT Performed at: - [address], [place], [place] [id number] Industrial Maintenance Millwright: Jaycob Jefferson PhD, Phone: [phone] us Kath Rashid MD LAB BLOOD ORDERABLES Final Result [facility] - 01 * (ABNORMAL) CBC with auto differential (09/13/2024 12:01 PM CDT) Pathologist [facility] WBC 4.5 3.4 - 10.8 x10E3/uL [facility] [...] 8:09 AM CDT Performed at: - [facility] [address] [id number] Industrial Maintenance Millwright: Jaycob Jefferson PhD, Phone: [phone] us Kath Rashid MD LAB BLOOD ORDERABLES [...] compared to prior imaging studies performed at [facility] on 11/17/2022, and at [facility] on 05/24/2020 and 11/02/2021. There are [...] compared to prior imaging studies performed at [facility], [facility]. There are scattered areas [...] with a HCV Nucleic Acid Amplification test ([id number]). 02/28/2021 3:55 PM CDT 02/28/2021 Narrative [facility] - 03/08/2021 12:06 AM BULLET LUBRICANT MIXER Performed at: [facility] [id number] Industrial Maintenance Millwright: Jaycob Jefferson PhD, Phone: [phone] Kath Rashid MD LAB MICROBIOLOGY - GENERAL ORDERABLES Final Result [facility] - 01 from Last 3 Months or Most Recently Relevant to Health Maintenance Insurance [facility] PLUS [facility] PL[facility] Care Teams Personnel Clerk Relationship Specialty Start Date End Date Jonas Blanco MD [address] [place] [address] DEPT [place] [address] PCP - General Family Medicine 09/20/21
--- OUTSIDE RECORDS SUMMARY | 2024-12-02 00:08 | XMS_ITS | Referral Summary ---
Author Organization [facility] Address [address] [place] [address] Care Team Providers Care Reptile Farmer Name Role Phone Jonas Blanco MD Primary Care Provider [phone] Encounters Date Type Department Care Team Description 11/12/2024 Telephone [facility] Diabetes and Endocrinology [address] [place] [phone] Noemy Solorio MD New Referral to Endocrinology 09/15/2024 Results Follow-Up [facility] Rheumatology [address] [facility] Office [address] [place] [address] Kath Rashid MD CBC with [...] 020 Assessment & Plan (05/17/2020 9:19 AM RADIO ENGINEER): Healed with focal flattening and anterior stromal [...] given Assessment & Plan (05/05/2020 3:22 PM RADIO ENGINEER): Hx ulcer OD ED healed on fortifieds. Cx NGTD Swtich to moxi QID. RTC 2 weeks. Assessment & Plan (04/26/2020 2:19 PM RADIO ENGINEER): - onset 04/03/20. Worsened on polytrim/PF. No [...] but pt extreme myope. RTC ~8-10 days [facility], sooner PRN Assessment & Plan (04/21/2020 3:07 PM RADIO ENGINEER): - onset 04/03/20. Worsened on polytrim/PF. No improvement on q1h besifloxacin + polytrim - in setting of RGP use (but no sleeping in them) Plan - bacteria/fungus cultures NGTD - vanc q2h on the evens - tobra q2h on [facility] sooner PRN Assessment & Plan (04/20/2020 10:44 AM RADIO ENGINEER): - onset 04/03/20. Worsened on polytrim/PF. No improvement on q1h besifloxacin + polytrim - in setting of RGP use (but no sleeping in them) Plan - bacteria/fungus cultures obtained today OD - vanc q2h on the evens - tobra q2h on the [facility] RTC 1 day, [facility] 1430, sooner PRN Sjogren's syndrome without extraglandular [...] on file Legal Sex Female 7:04 AM RADIO ENGINEER Gender Identity Not on file Sexual Orientation Not on file Last Filed Vital Signs Vital Sign Reading Time Taken Comments Blood Pressure 138/82 04/07/2024 11:35 AM RADIO ENGINEER Pulse 95 04/07/2024 11:35 AM RADIO ENGINEER Temperature 36.8 C (98.2 F) 04/07/2024 11:35 AM RADIO ENGINEER Respiratory Rate - - Oxygen Saturation 98% 04/07/2024 11:35 AM RADIO ENGINEER Inhaled Oxygen Concentration - - Weight 106.6 kg (235 lb) 04/07/2024 11:35 AM RADIO ENGINEER Height 177.8 cm (5' 10) 04/07/2024 11:35 AM RADIO ENGINEER Body Mass Index 33.72 04/07/2024 11:35 AM RADIO ENGINEER Plan of Treatment Not on file Procedures [...] - 09/14/2024 6:41 AM CDT Performed at: [address] [place] [id number] [place]: Jaycob Jefferson PhD, Phone: [phone] us Kath Rashid MD LAB BLOOD ORDERABLES Final Result [facility] - 01 * (ABNORMAL) CBC with auto differential (09/13/2024 12:01 PM CDT) Pathologist [facility] WBC 4.5 3.4 - 10.8 x10E3/uL [facility] [...] - 09/14/2024 8:09 AM CDT Performed at: [address] [id number] [place]: Jaycob Jefferson PhD, Phone: [phone] Kath Rashid MD LAB BLOOD ORDERABLES Final Result Performing Organization Address City/State/[facility] Co de Phone Number [facility] - 01 * Screening Mammogram Bilateral [place] (11/20/2023 11:32 AM CDT) Anatomical Region Laterality Modality Breast Bilateral Mammography Narrative 11/21/2023 11:08 AM CDT Mammogram Technique: Bilateral Digital Breast Tomosynthesis, Bilateral C-view 2D Screening mammogram. Views obtained: bilateral craniocaudal and bilateral mediolateral oblique. Computer Aided Detection was performed. Mammogram Findings: The present examination has been compared to prior imaging studies performed at [facility]. [facility] on 11/17/2022, and at [facility] on 05/24/2020 and 11/02/2021. There are [...] compared to prior imaging studies performed at [facility]. [facility] on 11/17/2022, [facility] on 05/24/2020 and11/02/2021. There are [...] with a HCV Nucleic Acid Amplification test ([id number]). 02/28/2021 3:55 PM CDT 02/28/2021 Narrative [facility] - 03/08/2021 12:06 AM RADIO ENGINEER Performed at: - [facility] [address] [id number] [place]: Jaycob Jefferson PhD, Phone: [phone] Kath Rashid MD LAB MICROBIOLOGY - GENERAL ORDERABLES Final Result [facility] - 01 from Last 3 Months or Most Recently Relevant to Health Maintenance Insurance [id number] CHOICE PLUS [id number] CHOICE PLUS Care Teams Reptile Farmer Relationship Specialty Start Date End Date Jonas Blanco MD [address] [facility] [place] [address] PCP - General Family Medicine 09/20/21
--- OUTSIDE RECORDS SUMMARY | 2024-12-02 00:08 | XMS_ITS | Encounter Summary ---
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
[2024-12-02] MEDS: HYDROcodone/acetaminophen (*CRX) 5-325 MG TABLET 1 TAB PO (00:27)
== END 2024-12-02 01:55 | disposition home or self-care (01) ==
PROVIDERS: Emergency Provider Physician Assistant; PCP Family Medicine
DX: S86.002A Unspecified injury of left Achilles tendon, initial encounter (principal); S93.402A Sprain of unspecified ligament of left ankle, initial encounter; M32.9 Systemic lupus erythematosus, unspecified; M06.9 Rheumatoid arthritis, unspecified; X50.0XXA Overexertion from strenuous movement or load, initial encounter
CPT/HCPCS: 29515; 73590; 73610; 73630; 99283; A9270

== ENCOUNTER 2025-02-24 12:30 | Outpatient (RCR) | payer OTHER, SELFPAY ==
--- NOTE | 2024-12-10 07:58 | OPREHPOC ---
Outpatient Therapy Plan of Care This is a Multidisciplinary Plan of Care that may contain components documented by all disciplines (PT, OT, and ST.) PT Problem 1 PT Problem #1 Knowledge Deficit PT Goal 1 Goal / Goal Update 1* independent with HEP 2* pt demonstrate correct body mechanics with lifting from floor and with exercises Target Visit 8 PT Problem 2 PT Problem #2 Pain PT Goal 1 Goal / Goal Update 1* pt report pain of L shoulder 3/10 at worst 2* pt report cervical pain 2/10 at worst 3* radicular pain into L UE to mid humerus at worst 4* pt report with sleeping, awaken 1x/night due to neck/shoulder pain Target Visit 8 PT Problem 3 PT Problem #3 Impaired Strength PT Goal 1 Goal / Goal Update increase strength of L UE, to improve use of her dominant arm for self care and home tasks: 1* gross strength of shoulder 4/5 2* check scaler dynamometer at 3rd slot 60# Target Visit 8 PT Problem 4 PT Problem #4 Impaired Flexibility PT Goal 1 Goal / Goal Update improve cervical rotation to improve driving ability and L shoulder ROM to improve use of dominant arm for home and self care tasks: 1* cervical rotation to L 60' standing active L shoulder 2* flexion to 150' 3* abduction to 140' 4* IR- reach behind back, fingers to distal edge of scapula 5* ER- reach to back of head, fingers to cervical spine Target Visit 8
--- NOTE | 2024-12-10 07:58 | PTOPEVAL1 ---
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, fell forward, hitting lockers/wall; pain instantly all over; took off work next day; started having tingling into L arm to elbow, gradually more and getting worse; off over the summer/ not working went to primary dr, sent to ortho dr; MRI: L shoulder: moderate to advanced tendinopathy supraspinatus and infraspinatus, mild A-C joint degenerative changes MRI cervical: anterolisthesis C 4-5 with mild to moderate canal stenosis C 4-5-6; severe narrowing of foramina C 3-4; have referral to neurosurgeon, not have appt yet, problems finding dr that will take work man's comp just received restriction for work: 3# limit of pushing or pulling, lifting with L arm; 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 now- problems using L arm, cannot lift it up; Reported Pain Level Pain Score Self Report Additional Pain Score Comments L shoulder: pain range in the past week 3-5/10; hot, warm sensation, tingle and pulsates, arm jerks cervical pain: range in the past week 3-4/10 tight like blood pressure cuff; intermittent to distal elbow at worst pain increases with : using L arm, lifting weight, after use arm- little later hurts more after resting; lie on L side pain decrease: sit, rest, heat, ice take diflucac 2x/day for another issue report with sleeping, awaken 2x/night due to pain Assessment PT Clinical Summary Susan has the diagnosis of L shoulder pain, onset in July with falling forward at work. And cervical radiculopathy into L UE to distal elbow, intermittent. She reports gradual increase in cervical and L shoulder and arm pain since the fall. She has had MRI of cervical and L shoulder with report noted above. Quick DASH rating of 52% limitation in activity level. She is L hand dominant and currently is not working. And has new limitations from dr for 3# limit for use of L arm. With the evaluation: active ROM is decreased of cervical rotation L and all L shoulder motions, with pain increase; decreased veterinary poultry inspector strength of L with dynamometer; gross strength of L shoulder 3/ 5-- not able to move through available ROM; poor standing posture of neck, shoulders and trunk. Skilled PT services are indicated for modalities to decrease pain, therapeutic exercises to improve posture and strength of scapular-thoracic, to improve positioning of GH joint and shoulder complex with education for HEP and body mechanics/ posture. Plan of Care Interventions Electrical Stimulation,Hot Pack/Cold Pack,Manual Therapy,Mechanical Traction,Neuro Re-education, Patient/Caregiver Education,Therapeutic Activities ,Therapeutic Exercise,Ultrasound,Other Other Interventions taping PT Services Indicated Yes Treatment Frequency and 2x/wk for 8 visits Duration These treatments will address the objective and functional deficits as defined above. The patient will be advanced safely and appropriately in order for the patient to progress towards his/her prior level of function. Additional exercises will be introduced and as well as a comprehensive home exercise program upon discharge, if needed, ?to ensure carryover of functional gains achieved in the clinic. This treatment plan has been reviewed and agreement upon by the patient.
--- NOTE | 2024-12-31 09:39 | PCPTNOTE ---
pt arrived to session 10 minutes late today
--- NOTE | 2025-01-07 15:33 | OPREHPOC ---
Outpatient Therapy Plan of Care This is a Multidisciplinary Plan of Care that may contain components documented by all disciplines (PT, OT, and ST.) PT Problem 1 PT Problem #1 Knowledge Deficit PT Goal 1 Goal / Goal Update 1* independent with HEP 2* pt demonstrate correct body mechanics with lifting from floor and with exercises 01/07/25 1. I with HEP 2. unable to attempt lifting mechanics Target Visit 8 Progress Partially Met PT Problem 2 PT Problem #2 Pain PT Goal 1 Goal / Goal Update 1* pt report pain of L shoulder 3/10 at worst 2* pt report cervical pain 2/10 at worst 3* radicular pain into L UE to mid humerus at worst 4* pt report with sleeping, awaken 1x/night due to neck/shoulder pain 01/07/25 1. no change 2. no change 3. no change 4. slight improvement to 2-3x/night Target Visit 8 Progress Not Met PT Problem 3 PT Problem #3 Impaired Strength PT Goal 1 Goal / Goal Update increase strength of L UE, to improve use of her dominant arm for self care and home tasks: 1* gross strength of shoulder 4/5 2* puppy trainer dynamometer at 3rd slot 60# 01/07/25 1. 3-/5 grossly 2. regressed 25# Target Visit 8 Progress Not Met PT Problem 4 PT Problem #4 Impaired Flexibility PT Goal 1 Goal / Goal Update improve cervical rotation to improve driving ability and L shoulder ROM to improve use of dominant arm for home and self care tasks: 1* cervical rotation to L 60' standing active L shoulder 2* flexion to 150' 3* abduction to 140' 4* IR- reach behind back, fingers to distal edge of scapula 5* ER- reach to back of head, fingers to cervical spine 01/07/25 1. 38 deg 2. 125 deg 3. 110 deg 4. PSIS 5. palm to behind ear Target Visit 8 Progress Not Met
--- NOTE | 2025-01-07 15:34 | PTOPPROG ---
Assessment and note entered by Leti Bell, PT Evaluation Information Assessment Status Progress ICD-10 Condition Codes (PT) Radiculopathy, cervical M54.13,Pain in left shoulder M25.512 Other ICD-10 Condition Codes ( L shoulder lesion M75.82 PT) Onset July 2024 Subjective Information Pt reports she was supposed to see a neurosurgeon after her injury but it was never scheduled. She is working on getting that scheduled and a nurse from her workmans comp called her today. She is not sure if the pain she still has is coming from the nerve in her neck or her shoulder. She is unable to verbalize a percentage of perceived improvement. She doesn't think her strength is improving at all but her movement might be slightly better. She thinks she is understanding things she can do to reduce the muscle tension. She is L hand dominant. She is able to use her L hand to brush her teeth better, but continued difficulty with fine motor such as donning necklace and earrings. She continues to report radicular symptoms to the ant forearm. Assessment PT Clinical Summary With the re-evaluation: active ROM is decreased of cervical rotation L and all L shoulder motions, with slight increase in AROM flexion and IR; decreased network relations consultant strength of L with dynamometer from 40# to 25#; gross strength of L shoulder 3-/5 decreased. Skilled PT services are still indicated for modalities to decrease pain, therapeutic exercises to improve posture and strength of scapular- thoracic, to improve positioning of GH joint and shoulder complex with education for HEP and body mechanics/posture. Plan of Care Interventions Electrical Stimulation,Hot Pack/Cold Pack,Manual Therapy,Mechanical Traction,Neuro Re-education, Patient/Caregiver Education,Therapeutic Activities ,Therapeutic Exercise,Ultrasound,Other Other Interventions taping, dry needling PT Services Indicated Yes Treatment Frequency and 2x/wk for 8 visits Duration These treatments will address the objective and functional deficits as defined above. The patient will be advanced safely and appropriately in order for the patient to progress towards his/her prior level of function. Additional exercises will be introduced and as well as a comprehensive home exercise program upon discharge, if needed, ?to ensure carryover of functional gains achieved in the clinic. This treatment plan has been reviewed and agreement upon by the patient.
--- NOTE | 2025-02-24 13:31 | OPREHPOC ---
Outpatient Therapy Plan of Care This is a Multidisciplinary Plan of Care that may contain components documented by all disciplines (PT, OT, and ST.) PT Problem 1 PT Problem #1 Knowledge Deficit PT Goal 1 Goal / Goal Update 1* independent with HEP 2* pt demonstrate correct body mechanics with lifting from floor and with exercises 01/07/25 1. I with HEP 2. unable to attempt lifting mechanics 02-24-25 d/c goal 1 met; not done lifting due to shoulder pain Target Visit 16 Progress Partially Met PT Problem 2 PT Problem #2 Pain PT Goal 1 Goal / Goal Update 1* pt report pain of L shoulder 3/10 at worst 2* pt report cervical pain 2/10 at worst 3* radicular pain into L UE to mid humerus at worst 4* pt report with sleeping, awaken 1x/night due to neck/shoulder pain 01/07/25 1. no change 2. no change 3. no change 4. slight improvement to 2-3x/night 02-24-25 d/c goals not met Target Visit 16 Progress Not Met PT Problem 3 PT Problem #3 Impaired Strength PT Goal 1 Goal / Goal Update increase strength of L UE, to improve use of her dominant arm for self care and home tasks: 1* gross strength of shoulder 4/5 2* area cleaner dynamometer at 3rd slot 60# 01/07/25 1. 3-/5 grossly 2. regressed 25# 02-24-25 d/c goals not met Target Visit 8 Progress Not Met PT Problem 4 PT Problem #4 Impaired Flexibility PT Goal 1 Goal / Goal Update improve cervical rotation to improve driving ability and L shoulder ROM to improve use of dominant arm for home and self care tasks: 1* cervical rotation to L 60' standing active L shoulder 2* flexion to 150' 3* abduction to 140' 4* IR- reach behind back, fingers to distal edge of scapula 5* ER- reach to back of head, fingers to cervical spine 01/07/25 1. 38 deg 2. 125 deg 3. 110 deg 4. PSIS 5. palm to behind ear 02-24- d/c goals not met Target Visit 16 Progress Not Met
--- NOTE | 2025-02-24 13:31 | PTOPDC ---
Assessment and note entered by Erin Figueredo, PT Assessment Status Discharge ICD-10 Condition Codes (PT) Radiculopathy, cervical M54.13,Pain in left shoulder M25.512 Other ICD-10 Condition Codes ( L shoulder lesion M75.82 PT) Onset July 2024 Subjective Information had EMG of L arm, positive for compression; saw neurosurgeonTerese 4-5-6 surgery; to have CT scan tomorrow to determine what surgery will be done; tentatively planned for surgery Mar 17; ortho dr did injection into L shoulder -- helped a little; feel like L arm is weak and cannot regain strength in the arm very frustrated that this has been going on so long; and why it took so long to figure out what was going on; Reported Pain Level Pain Score 3,5: Self Report Additional Pain Score Comments NECK pain: range in the past week: 3-4/10 constant , nagging ache in neck, L > R side headache in base of head- had all week decrease pain: change positions, straighten neck and posture, heating pad, muscle relaxer increase pain: with shoulder hurting more, causes more neck pain with sleeping, awaken 2x/night due to pain; unable to lie on her L side, as she usually does for sleeping SHOULDER L: pain range in the past week 3-5/10; upper traps and pec areas; radicular into lateral humerus to above elbow at times more pain in shoulder since EMG and have bruising increase pain: using L arm decrease pain: rest Assessment PT Clinical Summary Susan has received a total of 16 PT sessions. With today's assessment, compared to last progress report: pain rating is the same: neck 3-4/10 and L shoulder 3-5/10; reported sleeping tolerance is the same at awakening 2x/night due to pain; self assessment with QUICK Dash from 80 to 68% limitation in activity level; L shoulder active and passive ranges are about the same, within 5' of last measurements; cervical rotation to R has decreased from 53 to 45' and L 38 to 20'; pain continues to increase with cervical rotation to L and extension and shoulder IR, ER and abduction motions; cowlman strength has decreased with cowlman dynamometer at 3rd slot from 25 to 15#; education completed for HEP, posture and body mechanics. The goals were partially achieved. She has seen the neurosurgeon and is scheduled for cervical surgery in February. Discharge PT. She is to continue with her HEP as tolerated. Plan of Care PT Services Indicated No
== END 2025-02-24 14:46 | disposition home or self-care (01) ==
LOC: ANHPT 12:30
PROVIDERS: PCP Family Medicine; Visit Provider Orthopaedic Surgery
DX: M75.82 Other shoulder lesions, left shoulder (principal); M54.12 Radiculopathy, cervical region; M47.812 Spondylosis without myelopathy or radiculopathy, cervical region
CPT/HCPCS: 97012; 97014; 97032; 97035; 97110; 97140; 97161; 97530; G0283

== ENCOUNTER 2025-03-05 13:31 | Outpatient (CLI) | payer OTHER, SELFPAY ==
--- NOTE | ~2025-03-05 | US_ITS ---
EXAMINATION: US venous doppler LE LT, 03/05/2025 13:55 SENIOR LINUX SYSTEMS ADMINISTRATOR HISTORY: acute dvt of left peroneal vein Comparison: None Technique: Hernandez-scale and color Doppler images were attempted of the lower saphenofemoral junction, common femoral vein,superficial femoral vein, proximal deep femoral vein, proximal deep femoral vein, popliteal vein and posterior tibial veins. Findings: Deep Venous System:Normal flow, augmentation and compressibility. No echogenic thrombus identified. The contralateral saphenofemoral junction appears unremarkable. Superficial Venous SystemNo superficial thrombophlebitis. Soft tissues: Soft tissues are unremarkable. Impression: Negative for DVT. Reviewed, dictated and finalized at location P. OR LINUX SYSTEMS ADMINISTRATOR Impression: Negative for DVT.
--- OUTSIDE RECORDS SUMMARY | 2025-03-05 20:06 | XMS_ITS | Encounter Summary ---
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
--- OUTSIDE RECORDS SUMMARY | 2025-03-05 20:07 | XMS_ITS | Clinical Summary ---
Author Organization [facility] Address [facility] [place] [address] Care Team Providers Care Vaccine Customer Representative Name Role Phone Jonas Blanco MD Primary Care Provider [phone] Encounters Date Type Department Care Team Description 02/16/2025 3:45 PM CDT - 02/16/2025 11:59 PM CDT Hospital Encounter [facility] [address] [place] [address] Jessica Mims MD Discharge Disposition: Home or Self Care (Routine Discharge) 02/16/2025 Travel from Last 3 Months Social History Tobacco Use Types Packs/Day Years Used Date Smoking Tobacco: Never Assessed Comments Unknown Sex and Gender Information Value Date Recorded Sex Assigned at Female 02/16/2025 3:38 PM CDT Legal Sex Female 4:40 PM CDT Gender Identity Not on file Sexual Orientation Not on file Plan of Treatment Health Maintenance Due Date Last Done Comments Colorectal Cancer Screening Colonoscopy (10 Years) 1968 Annual Physical 08/07/1971 Hepatitis C 1986 Hepatitis B Vaccines (1 of 3 - 19+ 3-dose series) 08/07/1987 Zoster Vaccines (1 of 2) 2018 Pneumococcal Vaccine: 50+ Years (2 of 2 - PCV) 03/29/2024 03/29/2023 COVID-19 Vaccine (3 - 2024- season) 2024 03/21/2021, 07/08/2020 Influenza Adult (#1) 2025 01/21/2024, 02/19/2023, 03/02/2022, Additional history exists Mammogram Screening 01/05/2027 01/05/2025, 11/20/2023, 11/17/2022, Additional history exists Cervical Cancer Screening Pap Smear (Age 30 to 64) Every 3 Years 02/28/2027 02/29/2024 Cervical Cancer Screening Pap with HPV Testing (Age 30 to 64) Every 5 Years 02/28/2029 02/29/2024 Cervical Cancer Screening with HPV 02/28/2029 DTaP, Tdap and Td Vaccines (3 - Td or Tdap) 12/09/2030 12/09/2020, 12/02/2016 Hepatitis A Vaccines Aged Out 08/14/2002 No long er eligible based on patient's age to complete this topic Meningococcal B Vaccine Aged Out No l onger eligible based on patient's age to complete this topic Meningococcal Vaccine Aged Out No sonny zarina eligible based on patient's age to complete this topic RSV Immunizations Under 20 Months Aged Out No longer eligible based on patient's age to complete this topic Procedures Procedure Name Priority Date/Time Associated Diagnosis Comments XR CERV SP+FLEX+EXT M4V Routine 02/16/2025 4:07 PM CDT Cervical spondylolysis from Last 3 Months Results * XR CERV SP+FLEX+EXT M4V (02/16/2025 4:07 PM CDT) Anatomical Region Laterality Modality Spine Radiographic Yoanna ging 02/17/2025 4:44 AM CDT Impressions 02/17/2025 4:47 AM CDT IMPRESSION: 1. Trace grade 1 anterolisthesis of C3 on C4 and C4 on C5, slightly worsened with flexion imaging and improving with extension. 2. Mild multilevel cervical spondylosis. Referred By: Interpreted By: Juan Carlos Garcia MD, 02/17/2025 4:44 AM Narrative 02/17/2025 4:47 AM CDT [address] [address] Examination: XR CERV SP+FLEX+EXT M4V Exam time: 02/16/2025 3:49 PM Clinical history: Neck pain. Comparison: No comparison. Technique: 5 views of the cervical spine. Findings: There is trace grade 1 anterolisthesis of C3 on C4 measuring approximately 2.5 mm. Trace anterolisthesis of C4 on C5 measuring 2 mm. Anterolisthesis appears to slightly worsened at both sites with flexion imaging and improves to near normal alignment with extension. Vertebral body heights are preserved. Mild degenerative disc space narrowing with marginal osteophyte identified at C5-C6. Multilevel degenerative facet arthropathy. No fracture or destructive bone lesions. Prevertebral soft tissues and included upper lungs appear unremarkable. Procedure Note Juan Carlos Garcia MD - 02/17/[address] [address] Examination: XR CERV SP+FLEX+EXT M4V Exam time: 02/16/2025 3:49 PM Clinical history: Neck pain. Comparison: No comparison. Technique: 5 views of the cervical spine. Findings: There is trace grade 1 anterolisthesis of C3 on C4 measuring approximately2.5 mm. Trace anterolisthesis of C4 on C5 measuring 2 mm. Anterolisthesisappears to slightly worsened at both sites with flexion imaging andimproves to near normal alignment with extension. Vertebral body heightsare preserved. Mild degenerative disc space narrowing with marginalosteophyte identified at C5-C6. Multilevel degenerative facet arthropathy.No fracture or destructive bone lesions. Prevertebral soft tissues andincluded upper lungs appear unremarkable. IMPRESSION: 1. Trace grade 1 anterolisthesis of C3 on C4 and C4 on C5, slightlyworsened with flexion imaging and improving with extension. 2. Mild multilevel cervical spondylosis. Referred By: Interpreted By: Juan Carlos Garcia MD, 02/17/2025 4:44 AM Jessica Mims MD GENERAL IMAGING Final Result from Last 3 Months Insurance [facility] Care Teams Vaccine Customer Representative Relationship Specialty Start Date End Date Jonas Blanco MD [address] [place] [phone] PCP - General HOSPITALIST 12/03/24
--- OUTSIDE RECORDS SUMMARY | 2025-03-05 20:07 | XMS_ITS | Clinical Summary ---
Author Organization [facility] Address [address] [place] [address] Care Team Providers Care Professional Services Manager Name Role Phone Jonas Blanco MD Primary Care Provider [phone] Allergies Active Allergy Reactions Criticality Noted Date Comments Cephalosporins Hives Medium 04/20/2014 Leflunomide Other (See comments) Low 06/18/2017 Penicillins Hives Medium 03/10/2013 Medications fluticasone propionate (FLONASE) 50 mcg/actuation nasal spray USE DIRECTED. 3 Active lisinopril (PRINIVIL,ZESTRIL) 10 mg tablet [address] (PROTONIX) 40 mg EC tablet BID Active cetirizine 10 mg tablet,disintegrati ng TAKE 1 TABLET DAILY NEEDED. Active pilocarpine (SALAGEN) 5 mg tablet TAKE 1 TABLET THREE TIMES A DAY 270 tablet 5 Active EnbreL Mini 50 mg/mL (1 mL) cartridgeIndication s:Sjogren's syndrome without extraglandular involvement INJECT 50 MG (1 ML) UNDER THE SKIN ONCE A WEEK 12 mL 1 5 Active sulfaSALAzine (AZULFIDINE) 500 mg tabletIndications:S jogren's syndrome without extraglandular involvement Take 2 tablets (1,000 mg total) by mouth 2 (two) times a day 480 tablet 5 Active Eliquis 5 mg tablet TAKE 1 TABLET BY MOUTH TWICE DAILY DIRECTED 5 Active atorvastatin (LIPITOR) 20 mg tablet [address] (VOLTAREN) 75 mg EC tablet Take 1 tablet (75 mg total) by mouth 2 (two) times a day 5 Active Sodium Fluoride 5000 Dry Mouth 1.1 % paste as directed 5 Active Active Problems Problem Noted Date Diagnosed Date Plantar fasciitis 01/05/2025 Achilles tendon tear, left, initial encounter Rheumatoid arthritis 12/08/2024 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 Cx NGTD Swtich to moxi QID. RTC 2 weeks. Assessment & Plan (04/26/2020 2:19 PM API ARCHITECT): - onset 04/03/20. Worsened on polytrim/PF. No [...] but pt extreme myope. RTC ~8-10 days [facility], sooner PRN Assessment & Plan (04/21/2020 3:07 PM API ARCHITECT): - onset 04/03/20. Worsened on polytrim/PF. No improvement on q1h besifloxacin + polytrim - in setting of RGP use (but no sleeping in them) Plan - bacteria/fungus cultures NGTD - vanc q2h on the evens - tobra q2h on the odds [facility] PRN Assessment & Plan (04/20/2020 10:44 AM API ARCHITECT): - onset 04/03/20. Worsened on polytrim/PF. No improvement on q1h besifloxacin + polytrim - in setting of RGP use (but no sleeping in them) Plan - bacteria/fungus cultures obtained today OD - vanc q2h on the evens - tobra q2h on the odds RTC 1 day, [facility] 1430, sooner PRN Sjogren's syndrome without extraglandular involv ement 10/21/2018 Resolved Problems Problem Noted Date Diagnosed Date Resolved Date Pain in left foot 12/08/2024 02/05/2025 Pain in left leg 12/08/2024 02/05/2025 Dry mouth 10/21/2018 10/21/2018 Encounters Date Type Department Care Team Description 03/03/2025 1:10 PM API ARCHITECT Office Visit [facility] Medicine Orthopaedic Surgery [address] [place] [address] 2nd [address] [place] [phone] Mirian Yen IV, MD Achilles tendon tear, left, subsequent encounter (Primary Dx) 02/04/2025 Telephone [facility] Medicine Orthopaedic Surgery [address] [place] [address] 2nd Floor [address] [place] [address] Mirian Yen IV, MD 02/03/2025 3:00 PM CDT Office Visit [facility] Medicine Rheumatology [address] [facility] Medical Office Building 2 [address] [place] [address] Kaity Almeida NP High risk medication use (Primary Dx); Sjogren's syndrome without extraglandular involvement 02/02/2025 12:30 PM CDT Office Visit [facility] Medicine Orthopaedic Surgery [address] [facility] 2nd Floor [address] [place] [phone] Vin Masterson MD Achilles tendon tear, left, subsequent encounter (Primary Dx) 01/26/2025 Telephone [facility] Medicine Orthopaedic Surgery [address] [place] [address] 2nd Floor [address] [place] [phone] Mirian Yen IV, MD 01/05/2025 12:19 PM CDT - 01/05/2025 11:59 PM CDT Hospital Encounter [facility] Breast Imaging [facility] ([facility] [address] [place] [address] Screening mammogram, encounter for Discharge Disposition: Discharge to home or self care 01/05/2025 11:40 AM CDT Office Visit [facility] Medicine Orthopaedic Surgery [address] [place] [address] 12th [place] [address] [place] [address] Mirian Yen IV, MD Achilles tendon tear, left, subsequent encounter (Primary Dx); Plantar fasciitis 12/09/2024 1:00 PM CDT Ancillary Procedure [facility] Medicine Vascular Lab at the [facility] [address] 8th [place] [address] Pain in left foot; Pain in left leg 12/09/2024 Telephone [facility] Medicine Orthopaedic Surgery [address] [place] [address] 2nd [address] [place] [phone] Mirian Yen IV, MD 12/09/2024 Telephone [facility] Medicine Orthopaedic Surgery [address] [place] [address] 2nd [address] [place] [phone] Mirian Yen IV, MD 12/08/2024 3:10 PM CDT Office Visit [facility] Medicine Orthopaedic Surgery [address] [place] [address] 12th [place] [address] Mirian Yen IV, MD Achilles tendon tear, left, initial encounter (Primary Dx); Pain in left foot; Pain in left leg; Sjogren's syndrome without extraglandular involvement 12/08/2024 Telephone [facility] Orthopaedic Surgery [address] [facility] 2nd Floor [address] [place] [address] Mirian Yen IV, MD 12/05/2024 Telephone [facility] Orthopaedic Surgery [address] [facility] 2nd Floor [address] [place] [address] Mirian Yen IV, MD 12/04/2024 2:53 PM CDT - 12/04/2024 11:59 PM CDT Hospital Encounter [facility] [address] [id number] Strain of unspecified achilles tendon, initial encounter Discharge Disposition: Discharge to home or self care from Last 3 Months Surgical History Surgery Date Site/Laterality Comments [place] CAUTERY CERVIX CRYOCAUTER Y INITIAL/REPEAT Cervix Cryosurgery [...] lupus erythematosus - (Added by TW Conv) Breast cancer Neg Hx Ovarian cancer Neg Hx Relation Name Status Comments Father Mother Paternal Grandfather Sister Social History Tobacco Use Types Packs/Day Years Used Date Smoking Tobacco: Never Smokeless Tobacco: Never Tobacco Cessation:Counseling Given: Not Answered Alcohol Use Standard Drinks/Week Comments No 0 (1 standard drink = 0.6 oz pur e alcohol) AUDIT-C Answer Date Recorded Frequency of Alcohol Consumption Not on file 02/03/2025 Q2: How many drinks containi ng alcohol do you have on a typical day when you are drinking? Patient does not drink Frequency of Binge Drinking Not on file 10/2024 Comments No Sex and Gender Information Value Date Recorded Sex Assigned at Not on file Legal Sex Female 7:04 AM API ARCHITECT Gender Identity Not on file Sexual Orientation Not on file Obstetrics History Para Term AB IAB SAB Ectopic Multiple Livin g Live Births 2 1 1 1 Date Outcome GA Total Labor Labor/2nd/3rd Weight Sex Type Anes PTL Lucy A1 A5 Name Clin Term Last Filed Vital Signs Vital Sign Reading Time Taken Comments Blood Pressure 132/87 02/03/2025 3:16 PM CDT Pulse 106 02/03/2025 3:16 PM CDT Temperature 36.8 C (98.2 F) 02/03/2025 3:16 PM CDT Respiratory Rate - - Oxygen Saturation 97% 02/03/2025 3:16 PM CDT Inhaled Oxygen Concentration - - Weight 95.3 kg (210 lb) 01/05/2025 12:29 PM CDT Height 177.8 cm (5' 10) 02/03/2025 3:16 PM CDT Body Mass Index 30.13 12/08/2024 4:15 PM CDT Plan of Treatment Health Maintenance Due Date Last Done Comments Cervical Cancer Screening 1970 Colon Cancer Screening-Colonoscopy 1968 Depression Screening 1968 Hepatitis B Screening 1986 Regular Well Visit/Exam 18-64 1986 Zoster Vaccine (1 of 2) 2018 Influenza Vaccine (#1) 2024 , 02/19/2023, 02/19/2023, Additional history exists Breast Cancer Screening-Mammogram 01/05/2026 01/05/2025, 11/20/2023, 11/17/2022, Additional history exists DTaP/Tdap/Td Vaccine (3 - Td or Tdap) 12/09/2030 12/09/2020, 12/02/2016 Hepatitis C Screening Completed 02/28/2021 Pneumococcal vaccine <65 Aged Out 03/29/2023 No longer eligible based on patient's age to complete this topic Procedures Procedure Name Priority Date/Time Associated Diagnosis Comments SCREENING MAMMOGRAM BILATERAL W CARLTON Schedule Routine, Read Routine (OP Routine) 01/05/2025 12:38 PM CDT Screening mammogram, encounter for US VEIN DUPLEX LOWER EXTREMITY LEFT LIMITED Schedule Routine, Read Routine (OP Routine) 12/09/2024 1:39 PM CDT Pain in left foot Pain in left leg MRI ANKLE LEFT WO CONTRAST Schedule SJ, Read SJ (Appt Today, Awaiting Results) 12/04/2024 3:55 PM CDT Strain of unspecified achilles tendon, initial encounter HEPATITIS C ANTIBODY Routine 02/28/2021 3:55 PM CDT from Last 3 Months or Most Recently Relevant to Health Maintenance Results * Screening Mammogram Bilateral W Carlton (01/05/2025 12:38 PM CDT) Anatomical Region Laterality Modality Breast Bilateral Mammography Impressions 01/09/2025 10:38 AM CDT Bilateral No evidence of malignancy in either breast. OVERALL BI-RADS FINAL ASSESSMENT: 1 - Negative RECOMMENDATION: Recommend bilateral annual screening mammography. Narrative 01/09/2025 10:38 AM CDT EXAMINATION: Screening Mammogram Bilateral W Carlton: 01/05/2025 COMPARISON: Relevant prior studies available at the time of interpretation were reviewed, including the most recent mammogram on: 11/20/2023. TECHNIQUE: Mammography was performed with 2D and 3D digital breast tomosynthesis (DBT) images. CAD was utilized. BREAST PARENCHYMAL COMPOSITION: There are scattered areas of fibroglandular density. FINDINGS: Bilateral There is no suspicious mass, calcification, or architectural distortion in either breast. us Self Screening Mammogram IMG MAMMO PROCEDURES Fi nal Result * US Vein Duplex Lower Extremity Left Limited (12/09/2024 1:39 PM CDT) Anatomical Region Laterality Modality Vascular Left Ultrasound 12/09/2024 1:17 PM CDT Narrative 12/09/2024 10:54 PM CDT [facility] - Department of Vascular Surgery, Vascular Laboratory [address] [place] [address] Lower Extremity Venous Ultrasound Report Patient Name: SUSAN JIN : 1970 (54y 4m) Study Date: 12/09/2024 1:17:54 PM Gender: F Tech: DB Location: [facility] Ref Provider: MIRIAN YEN Quality: Adequate Order Provider: MIRIAN YEN PROCEDURES: Vascular Report: Venous Duplex imaging was performed in the left lower extremity. The common femoral, femoral, popliteal, posterior tibial, peroneal veins were evaluated for patency, spontaneity and phasicity with Doppler, compression and augmentation maneuvers. Great saphenous vein proximal at the junction was evaluated with compression maneuvers. INDICATIONS: M79.672 Pain in left foot and M79.605 Pain in left leg. FINDINGS: Performing Maintenance Helper Utility Engineer: Lexii Waters RVT. Left: Duplex scan reveals dilated vein with echogenic, intraluminal, non-compressible material consistent with acute deep vein thrombosis in the left lower extremity. Deep veins involved include the peroneal veins. All other evaluated veins are patent. Comments: Contralateral common femoral vein is imaged for comparison and is patent. Unilateral (limited study) performed per M.D. order. Provider Notification: Results called on the above date to Mirian Yen MD. Time called 15:35pm. The patient was released per provider. office to contact pt. CONCLUSIONS: 1. There is acute deep vein thrombosis involving vein(s) as noted above in the left lower extremity. HISTORY: Pain in left foot, pain in left leg. PREVIOUS STUDIES: No previous studies for comparison. DISCLAIMER: The study images and the final report will be retained in the patient chart by the Vascular Laboratory for the legally required time period. This chart constitutes the legal record of any testing performed. ATTESTATION: I have reviewed and interpreted the pertinent images and measurements of this study. I attest to the conclusions in the final report that is provided above. Electronically Signed By: Fred Hartman MD FACS 12/09/2024 10:26:05 PM CDT Procedure Note Fred Hartman MD - 12/09/2024 [facility] - Department of Vascular Surgery,Vascular Laboratory [address] [place] [address] Lower Extremity Venous Ultrasound Report Patient Name: SUSAN JIN : 1970 (54y 4m) Study Date: 12/09/2024 1:17:54 PM Gender: F Tech: DB Location: [facility] Ref Provider: MIRIAN YEN Quality: Adequate Order Provider: MIRIAN YEN PROCEDURES: Vascular Report: Venous Duplex imaging was performed in the left lower extremity. Thecommon femoral, femoral, popliteal, posterior tibial, peroneal veins were evaluated forpatency, spontaneity and phasicity with Doppler, compression and augmentationmaneuvers. Great saphenous vein proximal at the junction was evaluated with compressionmaneuvers. INDICATIONS: M79.672 Pain in left foot and M79.605 Pain in left leg. FINDINGS: Performing Maintenance Helper Utility Engineer: Lexii Waters RVT. Left: Duplex scan reveals dilated vein with echogenic, intraluminal,non-compressible material consistent with acute deep vein thrombosis in the left lower extremity.Deep veins involved include the peroneal veins. All other evaluated veins arepatent. Comments: Contralateral common femoral vein is imaged for comparison and is patent.Unilateral (limited study) performed per M.D. order. Provider Notification: Results called on the above date to Mirian Yen MD. Time [id number]:35pm. The patient was released per provider. office to contact pt. CONCLUSIONS: 1. There is acute deep vein thrombosis involving vein(s) as noted above inthe left lower extremity. HISTORY: Pain in left foot, pain in left leg. PREVIOUS STUDIES: No previous studies for comparison. DISCLAIMER: The study images and the final report will be retained in the patientchart by the Vascular Laboratory for the legally required time period. This chartconstitutes the legal record of any testing performed. ATTESTATION: I have reviewed and interpreted the pertinent images and measurements ofthis study. I attest to the conclusions in the final report that is provided above. Electronically Signed By: Fred Hartman MD FACS 12/09/2024 10:26:05 PM CDT us Mirian Yen IV, MD IM US PROCEDURES Fin al Result * MRI Ankle Left WO Contrast (12/04/2024 3:55 PM CDT) Anatomical Region Laterality Modality Lower Extremities Left Magnetic Reson ance 12/04/2024 4:00 PM CDT Narrative 12/04/2024 4:16 PM CDT EXAM DESCRIPTION: MRI ANKLE LEFT WO CONTRAST REASON FOR STUDY: s86.019a TECHNIQUE: Multiplanar, multisequence MRI of the left ankle was performed without contrast. COMPARISON: None FINDINGS: Bones: No fracture. Effusions: No tibiotalar, subtalar, or intertarsal joint effusions. There is no retrocalcaneal or retroachilles bursitis. Soft Tissues: No mass. Nonspecific circumferential subcutaneous edema. Osseous Articulations: There is no osteochondral lesion of the talar dome. There is no tarsal coalition. Achilles Tendon: Advanced tendinosis with full thickness tearing at the critical zone. The tear is present 5 cm proximal to the insertion. There is tendon retraction by 1.2 cm. Extensor Tendons: Intact. No tendinosis or tear. Flexor Tendons: Intact. No tendinosis or tear. Peroneal Tendons: Intact. No tendinosis or tear. Lateral Ligaments: The anterior talofibular ligament is not identified and likely chronically torn. The syndesmotic, posterior talofibular, and calcaneofibular ligaments are intact. Medial Ligaments: The deltoid ligament is intact. The tibial spring ligament is intact. Sinus Tarsi: Fat signal is preserved within the sinus tarsi. Plantar Fascia: Prominent plantar calcaneal enthesophyte. No inflammation or tear. IMPRESSION: 1. Achilles tendon advanced tendinosis with full thickness tearing at the critical zone. The tear is present 5 cm proximal to the insertion. There is tendon retraction by 1.2 cm. 2. Anterior talofibular ligament is not identified and likely chronically torn. 3. Prominent plantar calcaneal enthesophyte. No inflammation or tear. 4. Nonspecific circumferential subcutaneous edema. THIS IS AN ELECTRONICALLY VERIFIED FINAL REPORT 12/04/2024 4:16 PM - Electronically signed by Abraham Ryan M.D. JA: JHON Report ID: [id number] Reading Location: [id number] Procedure Note Abraham Ryan MD - 12/04/2024 EXAM DESCRIPTION: MRI ANKLE LEFT WO CONTRAST REASON FOR STUDY: s86.019a TECHNIQUE: Multiplanar, multisequence MRI of the left ankle wasperformed without contrast. COMPARISON: None FINDINGS: Bones: No fracture. Effusions: No tibiotalar, subtalar, or intertarsal joint effusions.There is no retrocalcaneal or retroachilles bursitis. Soft Tissues: No mass. Nonspecific circumferential subcutaneous edema. Osseous Articulations: There is no osteochondral lesion of the talardome. There is no tarsal coalition. Achilles Tendon: Advanced tendinosis with full thickness tearing at the critical zone. The tear is present 5 cm proximal to the insertion. Thereis tendon retraction by 1.2 cm. Extensor Tendons: Intact. No tendinosis or tear. Flexor Tendons: Intact. No tendinosis or tear. Peroneal Tendons: Intact. No tendinosis or tear. Lateral Ligaments: The anterior talofibular ligament is not identified and likely chronically torn. The syndesmotic, posterior talofibular, and calcaneofibular ligaments are intact. Medial Ligaments: The deltoid ligament is intact. The tibial springligament is intact. Sinus Tarsi: Fat signal is preserved within the sinus tarsi. Plantar Fascia: Prominent plantar calcaneal enthesophyte. Noinflammation or tear. IMPRESSION: 1. Achilles tendon advanced tendinosis with full thickness tearing atthe critical zone. The tear is present 5 cm proximal to the insertion. Thereis tendon retraction by 1.2 cm. 2. Anterior talofibular ligament is not identified and likelychronically torn. 3. Prominent plantar calcaneal enthesophyte. No inflammation or tear. 4. Nonspecific circumferential subcutaneous edema. THIS IS AN ELECTRONICALLY VERIFIED FINAL REPORT 12/04/2024 4:16 PM - Electronically signed by Abraham Ryan M.D. JA: JHON Report ID: [id number] Reading Location: [place] [address] us Not In File Miscellaneous IMG MRI PROCEDURES Fin al Result * Hepatitis C antibody (02/28/2021 3:55 PM CDT) Hep C Ab <0.1 0.0 - 0.9 s/co ratio [facility] - Comment: Negative: < 0.8 Indeterminate: 0.8 - 0.9 Positive: > 0.9 The CDC recommends that a positive HCV antibody result be followed up with a HCV Nucleic Acid Amplification test ([id number]). 02/28/2021 3:55 PM CDT 02/28/2021 Narrative [facility] - 03/08/2021 12:06 AM API ARCHITECT Performed at: 01 - [facility] [address] [id number] Audit Consultant: Jaycob Jefferson PhD, Phone: [phone] Kath Rashid MD LAB MICROBIOLOGY - GENERAL ORDERABLES Final Result [facility] - 01 from Last 3 Months or Most Recently Relevant to Health Maintenance Insurance CHOICE PLUS CHOICE PLUS Care Teams Professional Services Manager Relationship Specialty Start Date End Date Jonas Blanco MD [address] [place] [address] PCP - General Family Medicine 09/20/21
--- OUTSIDE RECORDS SUMMARY | 2025-03-05 20:07 | XMS_ITS | Encounter Summary ---
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
--- OUTSIDE RECORDS SUMMARY | 2025-03-05 20:07 | XMS_ITS | Data Portability ---
Author Organization [facility] [place] Address [address] [place] [address] [address] Care Team Providers Care Nurse'S Assistant Name Role Phone SHAKEEL CISNEROS Primary Care Provider Assessment Encounter Date Assessment Date Assessment LastModified by Organization Details LastModified Time 10/24/2022 10/24/2022 Annual gynecological exam performed. Patient will come back in a year unless there are new symptoms. devora Not available 10/24/2022 11:41:17 02/29/2024 02/29/2024 Annual gynecological exam performed. Patient will come back in a year unless there are new symptoms. [email or web address] Not available 02/13/2024 09:58:14 Plan of Treatment Reminders Order Date Submit Date Provider Last Modified By Organization Details Last Modified Time Details Appointments None recorded . Lab pregnanc y test, urine 2022 023 devora [place] [facility] [address], [address], [place], [address], 12:42:02 Referral None recorded . Procedures None recorded . Surgeries None recorded . Imaging None recorded . Medication Orders None recorded . Patient TargetsNo targets recorded. Patient InstructionsNo instructions recorded. Reason for Referral None Reported. Results Created Date Observation Date Name Description Value Unit Range Abnormal Flag Note LastModifiedBy Organization Detail LastModifiedTime 10/25/19 23 10/24/2022 IMAGE GUIDE D PAP AND HPV REGAR DLESS image guided Pap, HPV regardless of Pap result SEE RESULT S BELOW abnormal CASE REPOR T: Cytol ogy Gynec ologi khanh Repor t Case: [id number] Autho edwin mary Provi sarah: Hilaria Lee, NANCY Meraz cted: 10/24 1402 Order ing Locat ion: [place] Patho karan Recei ladan: 10/25 0751 First Scree n: Parvin Balbuena, CT Rescr een: Sue Jean-Baptiste Speci men: Mable veliz Pap - Image d, Cervi x STATE MENT OF ADEQU ACY: Satis facto ry for evalu ation Trans forma tion zone compo nent prese nt FINAL DIAGN OSIS: Negat marni for Intra epith elial García davis or Agustín al (NIL) . Elect khadra goss mick d by Sue Jean-Baptiste on 2022 at 2:09 PM ----- ----- ----- ----- ----- ----- ----- ----- ----- ----- ----- ----- ----- ----- ----- ----- ----- ---- HPV RESUL TS: HPV mRNA E6/E7 : Posit marni - HPV mRNA Detec rodrigue HPV GENOT YPE 16 (PEGGY) : Not Detec rodrigue HPV GENOT YPE 18/45 (PEGGY) : Not Detec rodrigue NOTE: This high risk HPV mRNA assay detec ts fourt een high- risk HPV types (16, 18, 31, 33, 35, 39, 45, 51, 52, 56, 58, 59, 66, 68) witho ut diffe renti ation . This assay can diffe renti ate HPV 16 from HPV 18/45 , but does not diffe renti ate betwe en HPV 18 and HPV 45. A negat marni HPV 16, 18/45 genot ype assay resul t does not exclu de the possi bilit y of cytol ogic abnor malit ies or of futur e or under lying GERMAINE 1, GERMAINE 3 or cance r. COMME NT: This speci men was revie wed by a Cytot echno logis t and/o r Patho logis t (as indic ated in this repor t) after evalu ation using the Thinp rep Imagi ng Syste m. CLINI KHANH INFOR MATIO N: Menst rual Statu s: LMP (if appli cable ): Clini khanh Histo ry/Pr eviou s Pap: Type of Neopl bryn (if appli cable ): Signi fican t Clini khanh Findi ngs: Other Histo ry: Hormo eric (if appli cable ): PAP EDUCA ROSA MARIA L NOTE: The Pap Test is a scree jose alfredo test with an inher ent false negat marni rate. Liqui d-bas ed sampl ing may decre ase, but will not elimi teri, false negat marni resul ts. A negat marni resul t does not precl ude the prese nce and/o r devel opmen t of disea se, since the prese nce of abnor mal cells in the sampl e depen ds on the locat ion of the lesio n and sampl ing techn ique. Maurilio nued regul ar scree jose alfredo is the best metho d of cance r preve ntion . If repor rodrigue cytol ogic findi ng do not corre late with physi khanh and/o r histo rical findi ngs, furth er inves tigat ion is recom joon d, as clini italia reveles nted. Not Available [facility] (Lab) [address], [place], [address], 10/27/2022 13:39:25 11/10/19 23 11/09/2022 SURGI KHANH PATHO LOGY surgical pathology SEE RESULT S BELOW CASE REPOR T: Surgi khanh Patho logy Repor t Case: [id number] Autho edwin g Provi sarah: Hilaria Lee NP Colle cted: 11/09 1231 Order ing Locat ion: [place] Patho logy Recei ladan: 11/10 0204 Patho logis t: Tung Torres MD Speci mens: A) - Vulva , Vulva r bx B) - Cervi x, CX polyp FINAL DIAGN OSIS: A. Vulva r biops y: -Unre marka ble squam ous mucos a with no dyspl bryn or infla mmati on. B. Cervi khanh polyp : -Loki gn endoc ervic al polyp . Elect khadra barton d by Tung Torres MD on 2022 at 2:34 PM ----- ----- ----- ----- ----- ----- ----- ----- ----- ----- ----- ----- ----- ----- ----- ----- ----- ---- CLINI KHANH INFOR MATIO N: n90.8 9 MICRO SCOPI C DESCR IPTIO N: A micro scopi c exami natio n was perfo rmed. GROSS DESCR IPTIO N: A. Vulva . The speci men is label ed with the patie nt's name, kulwant talamantes cs and vulva r biops y. Recei ladan in forma nba is a 0.2 cm piece of white -girard tissu e. The entir e speci men is submi tted in one casse tte. Gross ed by Symone Mccrary B. Cervi x. The speci men is recei ldaan in forma nba label ed with the patie nt's name, kulwant talamantes cs, and CX polyp . It consi sts of 2 girard-p ink polyp oid soft tissu e fragm ents measu ring 0.6 and 0.3 cm in [facility]. The speci men is submi tted entir kenney in casse tte B1. Gross ed by Symone Mccrary Not Available [facility] (Lab) [address], [place], [address], 11/10/2022 15:38:16 11/10/19 23 11/09/2022 pregn gabriel test, urine HCG negati ve Not Available [place] [address] [place], [address], 11/09/2022 12:41:55 02/29/20 24 02/29/2024 IMAGE GUIDE D PAP AND HPV REGAR DLESS image guided Pap, HPV regardless of Pap result SEE RESULT S BELOW abnormal CASE REPOR T: Cytol ogy Gynec ologi khanh Repor t Case: [id number] Autho edwin mary Provi sarah: Dermo dy, Gayle , ANP, CASH RECONCILIATION SPECIALIST Colle cted: 02/28 1158 Order ing Locat ion: [place] Patho logy Recei ladan: 03/01 0248 First Mable n: Sue Jean-Baptiste een: Caryn Chung , CT Speci men: Mable veliz Pap - Image d, Cervi x STATE MENT OF ADEQU ACY: Satis facto ry for evalu ation Trans forma tion zone compo nent prese nt ----- ----- ----- ----- ----- ----- ----- ----- ----- ----- ----- ----- ----- ----- ----- ----- ----- ---- FINAL DIAGN OSIS: Negat marni for Intra epith elial García davis or Agustín al (NIL) . Elect khadra breen by Caryn Chung , CT on 2023 at 11:16 AM ----- ----- ----- ----- ----- ----- ----- ----- ----- ----- ----- ----- ----- ----- ----- ----- ----- ---- HPV RESUL TS: HPV mRNA E6/E7 : Posit marni - HPV mRNA Detec rodrigue HPV GENOT YPE 16 (PEGGY) : Not Detec rodrigue HPV GENOT YPE 18/45 (PEGGY) : Not Detec rodrigue NOTE: This high risk HPV mRNA assay detec ts fourt een high- risk HPV types (16, 18, 31, 33, 35, 39, 45, 51, 52, 56, 58, 59, 66, 68) witho ut diffe renti ation . This assay can diffe renti ate HPV 16 from HPV 18/45 , but does not diffe renti ate betwe en HPV 18 and HPV 45. A negat marni HPV 16, 18/45 genot ype assay resul t does not exclu de the possi bilit y of cytol ogic abnor malit ies or of futur e or under lying GERMAINE 1, GERMAINE 3 or cance r. COMME NT: This speci men was revie wed by a Cytot echno logis t and/o r Patho logis t (as indic ated in this repor t) after evalu ation using the Thinp rep Imagi ng Syste m. CLINI KHANH INFOR MATIO N: Menst rual Statu s: LMP (if appli cable ): Clini khanh Histo ry/Pr eviou s Pap: Type of Neopl bryn (if appli cable ): Signi fican t Clini khanh Findi ngs: Other Histo ry: Hormo eric (if appli cable ): PAP EDUCA ROSA MARIA L NOTE: The Pap Test is a scree jose alfredo test with an inher ent false negat marni rate. Liqui d-bas ed sampl ing may decre ase, but will not elimi teri, false negat marni resul ts. A negat marni resul t does not precl ude the prese nce and/o r devel opmen t of disea se, since the prese nce of abnor mal cells in the sampl e depen ds on the locat ion of the lesio n and sampl ing techn ique. Maurilio nued regul ar scree jose alfredo is the best metho d of cance r preve ntion . If repor rodrigue cytol ogic findi ng do not corre late with physi khanh and/o r histo rical findi ngs, furth er inves tigat ion is recom joon d, as clini italia reveles nted. Not Available [facility] (Lab) [address], [place], [address], 03/07/2024 12:27:05 Result Notes None recorded. Problems Name Problem SNOMED Code Status Onset Date Resolution Date Notes Provider Name and Address Organization Details Recorded Time Finding of pattern of menstrual cycle Active 2015 Excessive and frequent menstruat ion with irregular cycle;Rec orded Elsewhere : No Locati on: [facility] So urce: EHR Chron ic: N Practic e ID: [id number] Bill able Time: 03:00:00 PM Not Available [facility] 0 18:56:38 Abnormal uterine bleeding 70381573219 100 Active 2015 Other specified abnormal uterine and vaginal bleeding; Recorded Elsewhere : No Locati on: [facility] So urce: EHR Chron ic: N Practic e ID: 0001 Bill able Time: 03:30:00 PM Not Available [facility] 0 18:56:38 Evaluatio n finding Active 2015 Oth abn and inconclus marni findings on dx imaging of breast;Re corded Elsewhere : No Locati on: [facility] So urce: EHR Chron ic: N Practic e ID: 0001 Bill able Time: 11:02:38 AM Not Available [facility] 0 18:56:38 Breast lump 90877910 Active 2015 Unspecifi ed lump in breast;Re corded Elsewhere : No Locati on: [facility] So urce: EHR Chron ic: N Practic e ID: 0001 Bill able Time: 02:56:38 PM Not Available [facility] 0 18:56:39 Cyst of ovary 27882827 Active 2016 Unspecifi ed ovarian cyst, right side;Jhonny rded Elsewhere : No Locati on: [facility] So urce: EHR Chron ic: N Practic e ID: 0001 Bill able Time: 02:00:00 PM Not Available [facility] 0 18:56:38 Screening for malignant neoplasm of rectum Active 2016 Screening for malignant neoplasms of the rectum;Re corded Elsewhere : No Locati on: [facility] So urce: EHR Chron ic: N Practic e ID: 0001 Bill able Time: 11:00:00 AM Not Available [facility] 0 18:56:38 Hypertens marni disorder 34644307 Active 2016 Essential (primary) hypertens ion;Recor ded Elsewhere : No Locati on: [facility] So urce: EHR Chron ic: N Practic e ID: 0001 Bill able Time: 11:00:00 AM Not Available [facility] 0 18:56:38 Insertion of intrauter ine contracep tive device Active 2016 Encounter for initial prescript ion of intrauter ine contracep tive device;Re corded Elsewhere : No Locati on: [facility] So urce: EHR Chron ic: N Practic e ID: [id number] Bill able Time: 11:00:00 AM Not Available [facility] Concept Active 2016 Encntr for general adult medical exam w/o abnormal findings; Recorded Elsewhere : No Locati on: [facility] So urce: EHR Chron ic: N Practic e ID: [id number] Bill able Time: 11:00:00 AM Not Available [facility] 0 18:56:39 Body mass index 30+ - obesity 977126583 Active 2016 Body mass index (BMI) 34.0-34.9 , adult;Rec orded Elsewhere : No Locati on: [facility] So urce: EHR Chron ic: N Practic e ID: [id number] Bill able Time: 11:00:00 AM Not Available [facility] Concept Active 2016 Encntr for rn gynecology exam (general) (routine) w/o abn findings; Recorded Elsewhere : No Locati on: [facility] So urce: EHR Chron ic: N Practic e ID: 0001 Bill able Time: 11:00:00 AM Not Available [facility] 0 18:56:39 Evaluatio n finding Active 2016 Unsp abnormal cytolog findings in specmn from cervix uteri;Rec orded Elsewhere : No Locati on: [facility] So urce: EHR Chron ic: N Practic e ID: [id number] Bill able Time: 02:04:42 PM Not Available [facility] 0 18:56:40 Lesion of ovary Active 2016 Other ovarian cyst, left side;Prac neftali ID: 0001 Not Available [facility] 0 18:56:40 Finding of pattern of menstrual cycle Active 2016 Other specified irregular menstruat ion;Recor ded Elsewhere : No Locati on: [facility] So urce: EHR Chron ic: N Practic e ID: 0001 Bill able Time: 02:45:00 PM Not Available [facility] 0 18:56:39 test negative 546603872 Active 2016 Encounter for test, result negative; Recorded Elsewhere : No Locati on: [facility] So urce: EHR Chron ic: N Practic e ID: 0001 Bill able Time: 02:30:00 PM Not Available [facility] 0 18:56:39 Problem Notes None recorded. Procedures Surgical History Date Name Laterality Status Provider Name and Address Organization Details Recorded Time 3 Vulvar Biopsy completed KVNG Gregory [address], [place], [address], [facility] 11/09/2022 14:15:05 3 Skin Tag Removal completed KVNG Gregory [address], [place], [address], [facility] 11/09/2022 14:14:41 3 Date of Last Pap Smear completed Adeline Fowler [facility] 02/29/2024 12:16:45 operative procedure on knee completed Daniela Ellison [facility] 10/24/2022 11:46:39 Imaging Results None recorded. Procedure Notes None recorded. Medical Equipment None Reported. Allergies Allergen ID Allergen Name Allergen Category Reaction Reaction Severity Criticality Documentation Date Start Date Code Code System Note Provider Name and Address Organization Details Recorded Time 09139 Cephalosp harvinder (substanc e) medicatio n Not available Not available Not available 04/16/2020 40710 7003 SNOMED Comme nt: [facility]; Not Available [facility] 0 14:20:41 59328 Product containin g penicilli n (product) medicatio n hives Not available Not available 04/16/2020 11986 8001 SNOMED React ion: Hives ; Comme nt: Locat ion: [facility]; Not Available [facility] 0 14:20:41 Medications Name Sig Start Date Stop Date Status Note LastModified by Organization Details LastModified Time Prometriu m 200 mg capsule take 1 capsule by oral route every day for 12 days in the evening sequenti ally per 28 day cycle 04/08 completed Prescrib ed Elsewher e: No Locat ion: [place] [facility] odify By: ray montenegro DateTime : 03/28/20 17 02:30:00 PM Not Available Not Available Not Available sulfasala zine 500 mg tablet Take 1 tablet 4 times a day by oral route. active Not Available Not Available No t Available atorvasta tin 10 mg tablet Take 1 tablet every day by oral route. active Not Available Not Available No t Available Loestrin Fe 05/19 (28-Day) 1 mg-20 mcg (21)/75 mg (7) tablet take 1 tablet by oral route every day 10/26 completed Prescrib ed Elsewher e: No Locat ion: [facility] odify By: katerine cullen DateTime : 06/02/19 16 03:25:00 PM Not Available Not Available Not Available pantopraz ole 20 mg tablet,de layed release Take 2 tablets every day by oral route. active Not Available Not Available No t Available hydroxych loroquine sulfate (bulk) powder 10/24 completed Prescrib ed Elsewher e: Yes Loca tion: [facility] odify By: azalia cullen DateTime : 10/27/19 17 11:00:00 AM Not Available Not Available Not Available lisinopri l 10 mg tablet Take 1 tablet every day by oral route. active Not Available Not Available No t Available hydrochlo rothiazid e 12.5 mg capsule take 2 capsule by oral route every day 10/24 completed Prescrib ed Elsewher e: Yes [facility] By: ray montenegro DateTime : 04/20/20 10:30:00 AM Not Available Not Available Not Available multivita min capsule take 1 capsule by oral route every day 10/24 completed Prescrib ed Elsewher e: Yes Loca tion: [facility] odify By: ray Bower ter DateTime : 04/20/20 10:30:00 AM Not Available Not Available Not Available Sudafed 30 mg tablet take 2 tablet by oral route every 6 hours as needed 10/24 completed Prescrib ed Elsewher e: Yes Loca tion: [facility] odify By: ray montenegro DateTime : 04/20/20 10:30:00 AM Not Available Not Available Not Available Enbrel active Not Available Not Availa ble Not Available Vitals Date Recorded Body height Body mass index (BMI) Body weight Systolic And Diastolic Provider Name and Address Organization Details Last Updated DateTime 10/24/2022 177.8 cm 31.6 kg/m2 20478.32 g 135/82 mm[Hg] [facility] 10/24/2022 11:41:59 Date Recorded Body height Body mass index (BMI) Body weight Systolic And Diastolic Provider Name and Address Organization Details Last Updated DateTime 11/09/2022 177.8 cm 31.6 kg/m2 57386.32 g 133/86 mm[Hg] [facility] 11/09/2022 12:15:36 Date Recorded Body height Body mass index (BMI) Body weight Systolic And Diastolic Provider Name and Address Organization Details Last Updated DateTime 11/27/2022 177.8 cm 31.6 kg/m2 29330.32 g 142/83 mm[Hg] [facility] 11/27/2022 12:24:33 Date Recorded Body weight Systolic And Diastolic Provider Name and Address Organization Details Last Updated DateTime 02/29/2024 572679.02 g 167/91 mm[Hg] Adeline Fowler [facility] 02/29/2024 12:15:30 Social History Question Answer Notes LastModified by Organizat ion Details LastModified Time Tobacco Smoking Status Never Smoker Daniela Ellison [facility] 10/24/2022 11:46:03 Are You Blind Or Do You Have Difficulty Seeing? No Information not available 10/24/2022 Are You Deaf Or Do You Have Serious Difficulty Hearing? No Information not available 10/24/2022 Do You Have Difficulty Walking Or Climbing Stairs? No Information not available 10/24/2022 Sex: Unknown Functional Status Question Answer Note LastModified by Organizat ion Details LastModified Time What is your level of alcohol consumption? None Information not available 10/24/2022 Are you able to walk independently without assistance or assistive devices? YESWOREST Information not available 10/24/2022 Are you able to care for yourself independently? Yes Information not available 10/24/2022 Do you have difficulty dressing, bathing, grooming, or toileting? No Information not available 10/24/2022 Mental Status None recorded. Family History Relationship Description Onset Age of this Age Resolved Age Notes LastModified by Organization Details LastModified Time Father Heart disease [email or web address] Not available 09/29 11:45:26 Paternal Grandmother Diabetes mellitus [email or web address] Not available 09/29 11:45:34 Notes:Mother: Brain aneurysm Medical History Condition Response Allergies (Food, seasonal, environmental ) N Other N Breast Cancer N Drug/Latex Allergies/Reactions N Blood Transfusion N Lung Disease N Dermatologic Disorders N Defects or Inherited Disease N Breast Problem N Gestational Diabetes N Hematologic disorders N Anesthesia Complications N History of STI N Deep Vein Thrombosis N Polycystic ovary syndrome N Anxiety Disorder N Autoimmune disease Y Arthritis Y Infertility N Polyps N Acid Reflux (GERD) Y History of abnormal pap N Cancer N Stroke N Varicosities N Neurologic/Epilepsy N Endometriosis N High Cholesterol Y Headaches N Fibromyalgia N Kidney Disease N Heart Problems N Kidney or Bladder Problems N Thyroid Problems N GI Problems N Eating Disorder N Anemia N Art (IVF or FET) N Psychiatric Illness N Ovarian Cancer N Diabetes N Pulmonary (TB, Asthma) N Hepatitis/Liver Disease N No Past Medical History N Eczema N Urinary Tract Infection N Abuse/Domestic Violence N Asthma N Trauma/Violence N Depression/ depression N Heart Disease N Pre-Eclampsia N Hypertension Y Osteoporosis N Thrombophilias N Gynecological History Statement/Question Response If Post Menopausal, Age at Menopause 46 Abnormal Pap Y Sexually Active? Y STIs/STDs N Age of first menstrual cycle 8 HPV Vaccine N Date of Last Pap Smear 10/24/2022 Sexual Problems? N Current Control Method Menopause LMP Unknown Obstetrics History GPAL:G 2 P 0 0 1 1 Type Value Spontaneous 1 Living 1 Total 2 Past Encounters Encounter ID Performer Location Encounter Start Date Encounter Closed Date Diagnosis/Indication Diagnosis SNOMED-CT Code Diagnosis ICD10 Code Diagnosis IMO Codes Diagnosis Note [id number] K[facility] Gregory [place] [address] [address] 10/24/2022 11:32:22 10/24/2022 14:58:45 Gynecologic examination 25815007 Z01.419 Take Calcium with Vitamin D 12-1500mg daily. Do monthly self breast exams. It is advised to get annual flu shot in the fall and she could obtain at [facility] or [facility] care clinic. If you haven't received the Tdap vaccine in the last 10 years you should obtain one as well. Have mammogram yearly, bone density every 2-3 years and colonoscop y every 5-10 years depending on findings and history. Engage in daily exercise of low impact aerobic exercise 45-60 minutes 4-5 times weekly. Avoid tobacco and illicit drugs as well as using moderation with alcohol intake less than 1-2 8 oz beverages daily. This lifestyle behavior pattern will lead to less health conditions and longer life span. If BMI greater than 25 weight watchers or dietary consult advised. Questions have been answered. Patient appears to understand instructio ns, but if you have any further questions call or respond to this email WWEpostmen opausalhx of abnormal papslast pap in 2017 - ASCUSpap updated todaySTI testing declinedma mmogram UTDcolon CA screening UTDUTD with PCPcervica l polyp noted on exam - recommende d removal, R/B discussedw greg, scaly skin patches bilateral vulva - discussed option of vulvar biopsy for further evaluation RTC for cervical polyp removal/vu lvar biopsy Lesion of cervix 8263853 01 N88.9 Changes in skin texture 502366723 R23.4 [id number] KVNG Gregory [place] [address] [address] 11/09/2022 12:03:01 11/09/2022 14:56:00 Screening procedure 36135865 Z13.9 Polyp of cervix 26382753 N84.1 Cervical polyp removed without any immediate complicati onsvulvar biopsy performed without any immediate complicati ons(see procedure noted)spec imens sent to pathologyp recautions reviewedRT C for f/u in 2 weeks Vulval irritation 796538 003 N90.89 [id number] KVNG Gregory [place] [address] [address] 11/27/2022 12:17:24 11/27/2022 13:11:36 Polyp of cervix 16478461 N84.1 reviewed normal/conchis ign pathology resultreco mmended crisco twice daily to vulvanotif y the office with any symptomsRT C for WWE in 1 year Time spent in visit is a total of 20 mins with at least 50% of visit consisting of counseling and review of plan of care. BP precaution s discussed, encouraged PCP f/u [id number] Isac Brice MD [place] [address] [address] 02/29/2024 12:03:54 02/29/2024 12:45:25 Gynecologic examination 61363647 Z01.419 Annual gynecologi khanh exam performed. Patient will come back in a year unless there are new symptoms. Suggest Calcium with Vitamin D if not eating in diet. Patient advised to get annual flu shot. Recommend yearly physicals and perform monthly breast exams. Genetic testing is available for patients with family history of cancer. Engage in safe sexual practices, use condoms. Encouraged to have daily exercise. Avoid tobacco and illicit drugs, moderation of alcohol. If BMI greater than 25 dietary consult advised. If you have any questions please call or email. mammogram- UTD (09/2023 - wnl), pt to schedule annual mammogram next year colon cancer screening - RUST cologuard 2022 - WNL DEXA scan- n/a Pap smear- pap w/ HPV collected laboratory evaluation - PCP STI testing - declined Pt BP elevated today, pt has annual exam with PCP next week. Recommende d that patient f/u with PCP regarding high blood pressure readings. Pt to continue taking BP medication as prescribed . Health Concerns Section Related Observation LastModified by Organization Detai ls LastModified Time None Recorded Concern Status LastModified by Organization Details LastModified Time None Recorded Advance Directives Directive None Recorded Payers Insurance Date Sequence Insurance Name Policy Number Policy Villeda Covered Member ID Villeda Member ID Guarantor Name 02/29/2024 1 [facility] [id number] Susan Viola Davin [id number] Susan Jin 02/29/2024 1 [facility] [id number] Susan A Davin [id number] Susan Jin Notes Date Note Type Note Provider Name and Address Organization Details Recorded Time 3 text/html Annual Audio Visual Coordinator Post-MenopausalReported by PatientGenitourinary symptomsFor menopausal symptoms, patient reportsno menopausal symptomsandnormal vaginal lubrication. For vaginal bleeding, patient reportshistory of menopause having occurredandno history of post menopausal bleeding. For urinary symptoms, patient reportsno hematuria,no incontinence,no nocturia, andno urinary frequency. For vulva, patient reportsno genital lesionandno vulvar atrophy. For vagina, patient reportsnormal vaginal dischargeandno vaginal atrophy.Breast symptomsFor breast, patient reportsno breast lump,no nipple discharge, andno breast pain.Psychological symptomsFor sexual complaints, patient reportsno sexual complaints. For psychological symptoms, patient reportsno depressionandno anxiety.Preventative measuresFor preventive measures, patient reportsencourage regular mammograms starting age 40,encourage self breast examination,encourage regular exercise, andencourage no tobacco use. KVNG Gregory [address], [place], [address], [facility] 10/24/2022 14:36:36 3 text/html 52yopresents for cervical lesion removal and vulvar biopsyUPT (-) KVNG Gregory [address], [place], [address], [facility] 11/09/2022 14:34:08 3 text/html 52yopresents for f/ucervical polyp removal and vulvar biopys at [facility] doing well, no issues or symptoms KVNG Gregory [address], [place], [address], [facility] 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 For vaginal bleeding, patient reportshistory of menopause having occurredandno history of post menopausal bleeding. For urinary symptoms, patient reportsno hematuria,no incontinence,no nocturia, andno urinary frequency. For vulva, patient reportsno genital lesionandno vulvar atrophy. For vagina, patient reportsnormal vaginal dischargeandno vaginal atrophy.Breast symptomsFor breast, patient reportsno breast lump,no nipple discharge, andno breast pain.Psychological symptomsFor sexual complaints, patient reportsno sexual complaints. For psychological symptoms, patient reportsno depressionandno anxiety.Preventative measuresFor preventive measures, patient reportsencourage regular mammograms starting age 40,encourage self breast examination,encourage regular exercise,encourage no tobacco use, andmammogram performed within the past year. Patient presents for annual well woman exam. Patient denies concerns today. GAYLE COLEY NP [address], [place], [address], [facility] 02/29/2024 12:44:27 OBGyn Episode Ob Episode Information Episode Created Date Number of Fetuses Patient Bloodtype Patient rh Status Prepregnancy Weight lbs Domestic Partner Domestic Partner Phone Father Name Dietitian Chief Status 10/25/19 23 1 CLOSED Fetus Data First Name Last Name Admitted to NICU Weight (g) Sex Living Outcome Pediatric Complications Fetus ID Race Codes Race Delivery Type [phone] M Full Term Vaginal Delivery Dominguez Calculation Initial Dominguez Date Initial Exam Date Initial Exam Provider Initial Ultrasound Date Last Menstrual Period Date Ultra Sound Weeks Gestation 0 Eighteen To Twenty Week Dominguez Update Ultra Sound Date Fundal Height At Umbil Quickening Date Ultra Sound Latest Weeks Gestation Final Dominguez Confirmed By Final Dominguez Confirmed Date Final Dominguez Date Ultra Sound Latest Days Gestation 0 0 Menstrual History Last Menstrual Date Menses Monthly On Bcp Conception Prior Menses Frequency Hcg Plus Date Menarche Onset Age Delivery Information Delivery Date Delivery Type Labor Anesthesia Weeks Gestation Incision Type Labor Labor Length Hrs Delivered By Post Complications Tubal Sterilization Discharge Date Comments 5 Discharge Information Feeding Method Contraceptive Method Maternal HG B and HCT Levels
--- OUTSIDE RECORDS SUMMARY | 2025-03-05 20:07 | XMS_ITS | Data Portability ---
Author Organization [facility] [employer], Main Office Address [address] [place] [address] Care Team Providers Care Oral Pathologist Name Role Phone JONAS BLANCO Primary Care Provider JONAS BLANCO Referring Provider [phone] JONAS BLANCO Primary Care Provider CASIMIRO PLATT Front Office Supervisor Assessment Encounter Date Assessment Date Assessment LastModified by Organization Details LastModified Time 10/06/2024 10/06/2024 54 yo F with - LT SHOULDER PAIN, chronic - HYPERCALCEMIA, chronic - HTN - HLD, improved - GERD - DDD L-SPINE - RT KNEE OA, severe - RT FOOT OA, mild - CHRONIC HEADACHE - RA - SLE - SJOGREN'S SYNDROME - OBESITY I - FH OF BRAIN ANEURYSM (Mom @ 24 yrs) Annual labs: 03/04/24. CXR: 02/15/24. X-ray Rt knee and Rt foot: 03/17/23. Annual labs: 02/26/23. X-ray b/l hands: 03/01/21. US buttock: 12/29/20. X-ray L-spine: 12/22/20. Annual labs: 12/11/20. D/w pt in detail about her conditions, recent labs & imagines and further plan of care. Will do x-ray. Advised pt to f/u with her Ortho for it too. All meds verified with pt. Meds as directed. Diet and exercise explained in detail. Educated about different options for her. BP diary education given and call us if any concerns. F/u with Endo as per schedule. F/u with Drop Man as per schedule. F/u with Derm as per schedule. Cont f/u with Ortho as per schedule. Cont f/u with Gyne as per schedule. Cont f/u with Rheumat at [facility] as per schedule. Cont f/u with Ophtho at [place] as per schedule. Advised to refer to Neuro; but pt declined. Pt was referred to PT; but pt did not go. Pt was referred to GI in the past. Educated pt about alarming symptoms to monitor at home. Pt's insurance declined for MRI brain w/wo. HM: WWE - 02/29/24, normal as per pt. Cont f/u with Gyne as per schedule. Mammo - 11/20/23, normal. Colonoscopy - Never. No FH of colon cancer. Cologuard 12/09/21, neg. DEXA - 12/28/20, normal. Pt wants to do it next year. Flu - 01/21/24. Tdap - 12/09/20. Pneumo - 03/29/23. Shingrix - At pharmacy/HD. F/u in 3-4 months. Annual labs in 03/24. [email or web address] Not available 10/06/2024 15:18:32 10/09/2024 10/09/2024 This note is dictated and transcribed by [employer]. Nurse Companion variances may occur. Despite proofreading, typographical errors may occur. Occasional wrong-word or 'nqufj-d-[id number]' substitutions may have occurred due to the inherent limitations of voice recording. Read the chart carefully and recognize, using context, where substitutions have occurred. Not available 10/09/2024 16:02:33 12/09/2024 12/09/2024 The patient gave verbal consent using TelePhonic services and the consent is documented in the medical record prior to using the service. The patient has been informed of what a TeleMedicine visit is. Patient is located at home. Provider is located at office. Names and roles of persons in addition to the patient and provider participating in telemedicine services include staff. The patient had a 11 minute TeleMedicine consultation via phone call to discuss the following: [email or web address] Not available 12/09/2024 15:42:44 02/04/2025 02/04/2025 54 yo F with - S/P LT ACHILLES TENDON RUPTURE; s/p boot - LT LE DVT (12/09/24) - LT SHOULDER PAIN, chronic - HYPERCALCEMIA, chronic - HTN - HLD, improved - GERD - DDD L-SPINE - RT KNEE OA, severe - RT FOOT OA, mild - CHRONIC HEADACHE - RA - SLE - SJOGREN'S SYNDROME - OBESITY I - FH OF BRAIN ANEURYSM (Mom @ 24 yrs) Annual labs: 03/04/24. CXR: 02/15/24. X-ray Rt knee and Rt foot: 03/17/23. Annual labs: 02/26/23. X-ray b/l hands: 03/01/21. US buttock: 12/29/20. X-ray L-spine: 12/22/20. Annual labs: 12/11/20. D/w pt in detail about her conditions, recent labs & imagines and further plan of care. Explained about different options for her Eliquis. She is still immobilized on her Lt LE in boot. So will continue it until the next US result. Will do US Lt LE in 03/24. Advised pt to f/u with her Ortho for it too. All meds verified with pt. Meds as directed. Diet and exercise explained in detail. Educated about different options for her. BP diary education given and call us if any concerns. F/u with Endo as per schedule. F/u with Derm as per schedule. Cont f/u with Spine surgeon at [facility] as per schedule. Cont f/u with Drop [facility] as per schedule. Cont f/u with Ortho as per schedule. Cont f/u with Gyne as per schedule. Cont f/u with Rheumat at [facility] as per schedule. Cont f/u with Ophtho at [facility] as per schedule. Advised to refer to Neuro; but pt declined. Pt was referred to PT; but pt did not go. Pt was referred to GI in the past. Educated pt about alarming symptoms to monitor at home. Pt's insurance declined for MRI brain w/wo. HM: WWE - 02/29/24, normal as per pt. Cont f/u with Gyne as per schedule. Mammo - 01/05/25, normal. Colonoscopy - Never. No FH of colon cancer. Cologuard 12/09/21, neg. DEXA - 12/28/20, normal. Pt wants to do it next year. Flu - 01/21/24. Tdap - 12/09/20. Pneumo - 03/29/23. Shingrix - At pharmacy/HD. F/u in 2 months. US Lt LE in 03/24. Annual labs in 03/24. [email or web address] Not available 02/04/2025 14:34:18 Plan of Treatment Reminders Order Date Submit Date Provider Last Modified By Organization Details Last Modified Time Details Appointments None recorded. Lab None recorded. Referral None recorded. Procedures None recorded. Surgeries None recorded. Imaging US, duplex, venous, lower extremity, unilateral - Please call patient to schedule. 2024 025 [facility], [place], [address] [place] [address] [address], [place], [address], 5 16:56:38 XR, foot, 3 or more view 2024 025 [email or web address] [facility] [place], [address], [place], [address], 5 16:04:34 XR, shoulder, 2 or more view [address], [address], [place], [address], 5 15:04:22 XR, chest [email or web address] [place] [address] Imaging, [address], [place], [address], 5 16:17:29 Medication Orders cyclobenzap rine 10 mg tablet 2024 025 [facility], [address] [place] [address], [place], [address], 5 14:22:20 lisinopril 10 mg tablet 2024 025 [facility], [address] [place] [address], [address], 14:22:15 pantoprazol e 40 mg tablet,junior yed release 2024 [facility], [address] [place] [address], [address], 14:22:18 atorvastati n 20 mg tablet 2024 [email or web address] [facility], [address] [place] [address], [address], 14:22:27 sumatriptan 50 mg tablet 2024 [facility], [address] [place] [address], [address], 14:22:13 Ubrelvy 100 mg tablet 2024 [facility], [address] [place] [address], [address], 14:22:13 Eliquis 5 mg tablet 2024 [facility] #27161, [address] [place], [place], [id number], 05:02:15 Eliquis 5 mg tablet 2024 [facility] #88867, [address], [place], [id number], 05:02:15 Voltaren Arthritis Pain 1 % topical gel 2024 [facility], [address], [place], [id number], 16:23:33 cyclobenzap rine 10 mg tablet 2024 025 JEREMY [facility], [address] [place] [address], [address], 5 15:10:37 lisinopril 10 mg tablet 2024 025 JEREMY [facility], [address] [place] [address], [address], 5 15:10:34 pantoprazol e 40 mg tablet,junior yed release 2024 025 [facility], [address] [place] [address], [address], 5 15:10:33 atorvastati n 20 mg tablet 2024 025 [email or web address], [address] [place] [address], [address], 5 15:10:34 sumatriptan 50 mg tablet 2024 025 [facility], [address] [place] [address], [address], 5 15:10:36 Ubrelvy 100 mg tablet 2024 025 [facility], [address] [place] [address], [address], 5 15:10:35 prednisone 20 mg tablet 2024 025 [email or web address] [facility] #97569, [address], [place], [id number], 5 14:56:58 metronidazo le 500 mg tablet 2024 025 [email or web address] #17093, [address], [place], [id number], 14:57:05 Patient TargetsNo targets recorded. Patient Instructions Encounter Date Encounter Id Patient Instructions Last Modified By Organization Details Last Modified Time 10/09/2024 [id number] achilles tendon: exercises Not available 10/09/2024 16:03:47 achilles tendonitis education Not available 10/09/2024 16:03:47 12/09/2024 [id number] Due to the COVID-19 (Novel Coronavirus) pandemic, it is within this context (and with the understanding that this method of patient encounter is in the patient s best interest as well as the health and safety of other patients and the public) that [facility] is being provided for this patient encounter rather than a lhjx-mt-[id number] visit. This patient encounter is appropriate at this time. This patient has been advised of the potential risks and limitations of this mode of treatment (including, but not limited to, the absence of in-person examination) and has agreed to be treated in a remote fashion despite these risks. Any and all of the patient s /patient s family s questions on this issue have been answered, and I have made no promises or guarantees to the patient. The patient has also been advised to contact this office for worsening conditions or problems, and seek emergency medical treatment and/or call 911 if the patient deems either necessary. HPI and/or vitals, if listed, were provided by the patient. Not available 12/09/2024 15:39:49 Reason for Referral None Reported. Results Created Date Observation Date Name Description Value Unit Range Abnormal Flag Note LastModifiedBy Organization Detail LastModifiedTime 10/10/19 25 XR, foot, 3 or more view No observ ation record ed. [facility] [place] [address], [place], [address], 10/09/2024 16:04:33 11/08/19 25 11/06/2024 MRI, cervi khanh spine , w/o contr ast No observ ation record ed. [email or web address] [facility] [address], [place], [address], 12/09/2024 15:39:29 11/08/19 25 11/06/2024 MRI, shoul sarah, w/o contr ast No observ ation record ed. [email or web address] [facility] [address], [place], [address], 12/09/2024 15:39:29 12/03/19 25 12/01/2024 XR, foot, 3 or more view No observ ation record ed. [email or web address] [facility] [address], [place], [address], 12/09/2024 15:39:29 12/03/19 25 12/01/2024 XR, ankle , 3 or more view No observ ation record ed. [address], [place], [address], 12/09/2024 15:39:29 12/03/19 25 12/01/2024 XR, tibia + fibul a, 2 view No observ ation record ed. [email or web address], [place], [address], 12/09/2024 15:39:29 12/10/19 25 12/09/2024 US, bharati hernández s, extre mity, unila teral No observ ation record ed. [email or web address] [address], [place], [address], 12/09/2024 15:53:43 01/10/20 25 01/05/2025 MAMMO , scree jose alfredo, bilat eral No observ ation record ed. [facility] [address], [place], [address], 02/04/2025 14:19:20 03/05/20 25 03/05/2025 US, bharati hernández s, lower extre mity, unila teral No observ ation record ed. [facility] [address], [place], [address], 03/05/2025 17:13:33 03/05/20 25 03/05/2025 US, thanhle x, bharati s, lower extre mity, unila teral No observ ation record ed. [facility] [address], [place], [address], 03/05/2025 18:29:40 Result Notes None recorded. Problems Name Problem SNOMED Code Status Onset Date Resolution Date Notes Provider Name and Address Organization Details Recorded Time Glucose level outside reference range 875095268 Completed Not Available [facility] 3 15:20:54 Migraine 48777223 Completed Not Available [facility] 3 15:20:55 Menorrhag ia 146769832 Completed Not Available [facility] 3 15:20:55 Cough 80122657 Completed Not Available [facility] 3 15:20:56 Systemic lupus erythemat osus 58912431 Active Jonas Blanco MD [address], [place], [address] , [employer] 5 14:07:54 Hypercalc emia 99749411 Active Not Available [facility] 3 15:20:56 Sj gren's syndrome 24941105 Active Jonas Blanco MD [address], [place], [address] , [employer] 5 14:07:54 Breast lump 44437541 Completed Not Available [facility] 3 15:20:57 Family history of aneurysm of blood vessel of brain 09389289690 401988 Active 2020 Not Available [facility] 3 15:20:54 Gastroeso phageal reflux disease without esophagit is 562339359 Active 2020 Jonas Blanco MD [address], [place], [address] , [employer] 5 14:07:55 Chronic low back pain 316515326 Active 2020 Jonas Blanco MD [address], [place], [address] , [facility] 5 14:07:55 Obesity 928354397 Active 2020 Jonas Blanco MD [address], [place], [address] , [facility] 5 14:07:54 Chronic headache disorder 903712283 Active 2020 Not Available [facility] 3 15:20:55 Migraine without aura 07084569 Active 2020 Jonas Blanco MD [address], [place], [address] , [facility] 5 14:07:55 Rheumatoi d arthritis 02540663 Active 2020 Not Available [facility] 3 15:20:57 Idiopathi c hypercalc emia 611345075 Active 2020 Jonas Blanco MD [address], [place], [address] , [facility] 5 14:07:54 Hyperlipi demia 89696138 Active 2020 Jonas Blanco MD [address], [place], [address] , [facility] 5 14:07:54 Degenerat ion of lumbar intervert ebral disc 43910114 Active 2020 Not Available [facility] 3 15:20:54 Hypertens marni disorder 19848855 Active 2020 Jonas Blanco MD [address], [place], [address] , [facility] 5 14:07:54 Contusion of buttock 30765811 Active 2021 Not Available [facility] 3 15:20:56 Goiter 8840735 Active 2021 Not Available [facility] 3 15:20:55 Dysphagia 08977936 Active 2021 Not Available [facility] 3 15:20:55 Allergic contact dermatiti s 285534885 Active 2021 Not Available [facility] 3 15:20:54 Seasonal allergic rhinitis 105307851 Active 2021 Not Available [facility] 3 15:20:55 Pain of right knee joint 19526123422 4100 Active 2022 Jonas Blanco MD [address], [place], [address] , [facility] 5 14:07:54 Pain in right foot 25456799185 9107 Active 2022 Jonas Blanco MD [address], [place], [address] , [facility] 5 14:07:54 Osteoarth ritis of right knee joint 05472132004 9100 Active 2023 SEEMA Ortiz [facility], [facility] 4 12:07:50 Pigmented skin lesion 259803280 Active 2023 Jonas Blanco MD [address], [place], [address] , [facility] 5 14:07:55 Pain of toe of right foot 86956911273 9101 Active 2023 Joaquim Pham DPM [address], [place], [address] , [facility] 4 08:42:10 Arthritis of joint of toe 106032779 Active 2023 Joaquim Pham DPM [address], [place], [address] , [facility] 4 08:42:22 Contusion of elbow 35562663 Active 2024 Jonas Blanco MD [address], [place], [address] , [facility] 5 11:44:53 Contusion of hip 34541004 Active 2024 Jonas Blanco MD [address], [place], [address] , [facility] 5 11:45:10 Sinusitis 74587514 Active 2024 REGINO Ledezma [address], [place], [address] , [facility] 5 14:24:35 Dental abscess 820020199 Active 2024 DHARMESH Moreira [address], [place], [address] , [facility] 5 12:32:00 Wheezing symptom 675688683 Active 2024 DHARMESH Moreira [address], [place], [address] , [facility] 5 12:33:29 Acute urticaria 357145953 Active 2024 DHARMESH Moreira [address], [place], [address] , [facility] 5 12:33:43 Pain of left shoulder region Active 2024 Jonas Blanco MD [address], [place], [address] , [facility] 5 15:09:38 Pain of left heel 02658347844 70008 Active 2024 Joaquim Pham DPM [address], [place], [address] , [facility] 5 16:02:43 Left Achilles tendiniti s 13725404199 9102 Active 2024 Joaquim Pham DPM [address], [place], [address] , [facility] [employer] [facility] [employer] [facility] 5 16:02:51 Calcaneal spur of left foot 54452277092 9109 Active 2024 Joaquim Pham DPM [address], [place], [address] , [facility] [employer] [facility] [employer] [facility] 5 16:03:00 Acute deep venous thrombosi s of left peroneal vein 49378434552 425276 Active 2024 Jonas Blanco MD [address], [place], [address] , [employer] 5 15:43:08 Acute rupture of Achilles tendon 342426542 Active 2024 Jonas Blanco MD [address], [place], [address] , [employer] 15:46:45 Problem Notes None recorded. Procedures Surgical History Date Name Laterality Status Provider Name and Address Organization Details Recorded Time Knee completed Not Available [facility] 04/2022 15:15:19 Imaging Results None recorded. Procedure Notes None recorded. Medical Equipment None Reported. Allergies Allergen ID Allergen Name Allergen Category Reaction Reaction Severity Criticality Documentation Date Start Date Code Code System Note Provider Name and Address Organization Details Recorded Time 88854 Product containin g penicilli n (product) medicatio n hives Not available Not available 06/28/2022 40758 8001 SNOMED Not Available [facility] 3 15:26:27 62357 Cephalosp harvinder (substanc e) medicatio n hives Not available Not available 06/28/2022 59165 7003 SNOMED Not Available [facility] 15:26:27 Medications Name Sig Start Date Stop Date Status Note LastModified by Organization Details LastModified Time Prescriptio n - Prior Authorizati on Request active Not Available Not Available N ot Available cyclobenzap rine 10 mg tablet TAKE 1 TABLET BY MOUTH EVERY 12 HOURS NEEDED 2024 active Not Available Not Available Not Avai lable clotrimazol e 10 mg dieudonne 06/17 completed Not Available Not Available Not Available pilocarpine 5 mg tablet TAKE 1 TABLET BY MOUTH THREE TIMES DAILY active Not Available Not Available No t Available prednisone 10 mg tablet TAKE 1 TABLET BY MOUTH TWICE DAILY 12/09 completed Not Available Not Available Not Available doxycycline hyclate 100 mg capsule TAKE 1 CAPSULE BY MOUTH TWICE DAILY FOR 10 DAYS 01/20 completed Not Available Not Available Not Available atorvastati n 20 mg tablet Take 1 tablet every day by oral route at bedtime for 90 days. 2024 active Not Available Not Available Not Avai lable sulfasalazi ne 500 mg tablet TAKE 2 TABLETS BY MOUTH TWICE DAILY active Not Available Not Available No t Available atorvastati n 10 mg tablet TAKE 1 TABLET BY MOUTH ONCE DAILY AT BEDTIME 02/04 completed Not Available Not Available Not Available azithromyci n 250 mg tablet 2 tabs po qd x 1 day then 1 tab po qd x 4 days 01/16 completed Not Available Not Available Not Available Lidocaine Viscous 2 % mucosal solution Take 15 mL every 3 hours by oral route. 06/17 completed Not Available Not Available Not Available fluconazole 150 mg tablet Take 1 tablet every day by oral route for 1 day. active Not Available Not Available No t Available benzonatate 200 mg capsule Take 1 capsule 3 times a day by oral route as needed. 01/16 completed Not Available Not Available Not Available meloxicam 15 mg tablet 12/09 completed Not Available Not Available Not Available sumatriptan 25 mg tablet Take 1-2 tabs PO as needed for migraine headache, repeat 1-2 tabs PO in 1 hour as needed. Max dose 200mg per day. active Not Available Not Available No t Available prednisone 20 mg tablet TAKE 1 TABLET BY MOUTH THREE TIMES DAILY FOR 3 DAYS THEN TAKE 1 TABLET BY MOUTH TWICE DAILY FOR 3 DAYS THEN TAKE 1 TABLET BY MOUTH DAILY FOR 3 DAYS 10/06 completed Not Available Not Available Not Available tacrolimus 5 mg capsule, immediate-r elease 12/09 completed Not Available Not Available Not Available sumatriptan 50 mg tablet Take 1 tablet as needed by oral route as directed. 2024 active Not Available Not Available Not Avai lable nystatin 500,000 unit tablet 06/17 completed Not Available Not Available Not Available Zyrtec 10 mg tablet Take 1 tablet every day by oral route. 2013 active Not Available Not Available Not Avai lable metronidazo le 500 mg tablet TAKE 1 TABLET BY MOUTH EVERY 8 HOURS FOR 7 DAYS DIRECTED 10/06 completed Not Available Not Available Not Available ciprofloxac in 500 mg tablet TAKE 1 TABLET BY MOUTH EVERY 12 HOURS FOR 10 DAYS 10/06 completed Not Available Not Available Not Available sulfamethox azole 800 mg-trimetho prim 160 mg tablet TAKE 1 TABLET BY MOUTH EVERY 12 HOURS FOR 7 DAYS 01/20 completed Not Available Not Available Not Available leflunomide 20 mg tablet Take 1 tablet every day by oral route. 11/05 completed hair loss Not Available Not Available Not Available triamcinolo ne acetonide 0.1 % topical cream 05/28 completed Not Available Not Available Not Available clobetasol 0.05 % topical gel 06/17 completed Not Available Not Available Not Available ketorolac 0.5 % eye drops 12/09 completed Not Available Not Available Not Available meloxicam 7.5 mg tablet Take 1 tab po every 12 hhrs as needed for back pain, take with food. 05/28 completed Not Available Not Available Not Available Tessalon Perles 100 mg capsule Take 1 capsule every day by oral route. 02/04 completed Not Available Not Available Not Available Marcaine 0.5 % (5 mg/mL) injection solution Take 20 mg by injection route. 01/20 completed Not Available Not Available Not Available prednisolon e acetate 1 % eye drops,suspe nsion 12/09 completed Not Available Not Available Not Available Kenalog 10 mg/mL suspension for injection Take 20 mg by injection route. 01/20 completed [facility]: [phone]- [phone] Not Available Not Available Not Available pantoprazol e 40 mg tablet,junior yed release TAKE 1 TABLET BY MOUTH ONCE DAILY IN THE MORNING 30 TO 40 MINUTES BEFORE BREAKFAST 2024 active Not Available Not Available Not Avai lable esomeprazol e magnesium 40 mg capsule,del ayed release Take 1 capsule every day by oral route. active Not Available Not Available No t Available triamcinolo ne acetonide 0.1 % topical ointment Apply 1 applicati on twice a day by topical route as needed for 7 days. active Not Available Not Available No t Available lisinopril 10 mg tablet Take 1 tab po once a day. 2024 active Not Available Not Available Not Avai lable polymyxin B sulfate 10,000 unit-trimet hoprim 1 mg/mL eye drops INT 1 GTT IN OD TID FOR 7 DAYS 12/09 completed Not Available Not Available Not Available oxycodone 5 mg capsule TAKE 1 CAPSULE BY MOUTH EVERY 4 HOURS NEEDED FOR PAIN active Not Available Not Available No t Available diclofenac potassium 50 mg tablet TAKE 1 TABLET BY MOUTH TWICE DAILY 10/06 completed Not Available Not Available Not Available diclofenac sodium 75 mg tablet,junior yed release TAKE 1 TABLET BY MOUTH TWICE DAILY active Not Available Not Available No t Available mupirocin 2 % topical ointment APPLY OINTMENT TOPICALLY THREE TIMES DAILY FOR 7 DAYS 01/20 completed Not Available Not Available Not Available hydroxychlo roquine 200 mg tablet TAKE 1 TABLET ALTERNATI NG WITH 2 TABLETS EVERY OTHER DAY 12/09 completed Not Available Not Available Not Available albuterol sulfate HFA 90 mcg/actuati on aerosol inhaler INHALE 2 PUFFS FOUR TIMES DAILY NEEDED FOR SHORTNESS OF BREATH OR WHEEZING active Not Available Not Available No t Available colchicine 0.6 mg tablet Take 1 tablet every day by oral route. 06/17 completed Not Available Not Available Not Available ketoconazol e 2 % topical cream APPLY TO AFFECTED AREA(S) TWICE DAILY FOR 4-6 WEEKS active Not Available Not Available No t Available atropine 1 % eye drops INSTILL 1 DROP IN RIGHT EYE TWICE DAILY 12/09 completed Not Available Not Available Not Available fluticasone propionate 50 mcg/actuati on nasal spray,suspe nsion Use 2 spray(s) in each nostril once daily 2023 active Not Available Not Available Not Avai lable cyclobenzap rine 5 mg tablet Take 1 tablet 3 times a day by oral route as needed. 02/04 completed Not Available Not Available Not Available moxifloxaci n 0.5 % eye drops INSTILL 1 DROP IN RIGHT EYE FOUR TIMES DAILY 02/19 completed Not Available Not Available Not Available Atrovent HFA 17 mcg/actuati on aerosol inhaler INHALE 2 PUFFS BY MOUTH FOUR TIMES DAILY active Not Available Not Available No t Available Besivance 0.6 % eye drops,suspe nsion INSTIL ONE DROP RIGHT EYE EVERY HOUR WHILE AWAKE 12/09 completed Not Available Not Available Not Available ropivacaine (PF) 5 mg/mL (0.5 %) injection solution Take 3 mL by injection route. 01/20 completed [facility] [phone] Not Available Not Available Not Available [facility] with Large Mask USE DIRECTED active Not Available Not Available No t Available Eliquis 5 mg tablet TAKE 1 TABLET BY MOUTH TWICE DAILY DIRECTED 2024 active Not Available Not Available Not Avai lable Fluvirin 6901-8567(P F) 45 mcg (15 mcg x3)/0.5 mL intramuscul ar syringe active Not Available Not Available N ot Available Enbrel Mini 50 mg/mL (1 mL) subcutaneou s cartridge active Not Available Not Available Not Available Ubrelvy 100 mg tablet Take 1 tablet every other day by oral route as needed for 30 days. 2024 active Not Available Not Available Not Avai lable Voltaren Arthritis Pain 1 % topical gel APPLY 2 GRAMS TO THE AFFECTED AREA(S) BY TOPICAL ROUTE 4 TIMES PER DAY, 2 weeks 2024 active Not Available Not Available Not Avai lable Sodium Fluoride 5000 Dry Mouth 1.1 % dental paste USE DIRECTED active Not Available Not Available No t Available Wegovy 0.25 mg/0.5 mL subcutaneou s pen injector Inject 0.25 mg every week by subcutane ous route as directed for 30 days. 05/28 completed Not Available Not Available Not Available Vitals Date Recorded Body height Body mass index (BMI) Body weight Body temperature Heart rate Respiratory rate Oxygen saturation Oxygen saturation in Arterial blood by Pulse oximetry Pain severity - 0-10 verbal numeric rating [Score] - Reported Systolic And Diastolic Provider Name and Address Organization Details Last Updated DateTime 5 176.53 cm 32.9 kg/m2 935248. 88 g 97.2 [degF] 97 /min 20 /min 97 % 97 % 2 180/120 mm[Hg] Radha Walker RN [facility] [employer] [facility] 12:18:02 Date Recorded Body height Body mass index (BMI) Body weight Body temperature Oxygen saturation Oxygen saturation in Arterial blood by Pulse oximetry Heart rate Systolic And Diastolic Provider Name and Address Organization Details Last Updated DateTime 5 176.53 cm 33.4 kg/m2 854153. 45 g 98.2 [degF] 93 % 93 % 117 /min 144/86 mm[Hg] Lexii Addison RN [facility] [employer] [facility] 15:05:19 Date Recorded Body height Body mass index (BMI) Body weight Heart rate Respiratory rate Oxygen saturation Oxygen saturation in Arterial blood by Pulse oximetry Systolic And Diastolic Provider Name and Address Organization Details Last Updated DateTime 176.53 cm 33.3 kg/m2 974732. 65 g 92 /min 14 /min 99 % 99 % 147/92 mm[Hg] Emma Powers [facility] [employer] [facility] 15:26:36 Date Recorded Body height Body temperature Oxygen saturation Oxygen saturation in Arterial blood by Pulse oximetry Heart rate Systolic And Diastolic Provider Name and Address Organization Details Last Updated DateTime 5 176.53 cm 97.9 [degF] 96 % 96 % 93 /min 130/74 mm[Hg] Lexii Addison RN [facility] [employer] [facility] 14:17:27 Social History Question Answer Notes LastModified by Organizat ion Details LastModified Time Tobacco Smoking Status Never Smoker Not Available [facility] 06/28/2022 15:14:59 Do You Have An Advance Directive? No [id number] Information not available 06/28/2022 Do You Wear A Helmet When Biking? No MIGRATION.110622 7082 Information not available 06/28/2022 What Is Your Level Of Caffeine Consumption? Moderate MIGRATION.106204 9434 Information not available 06/28/2022 In The 14 Days Before Symptom Onset, Have You Had Close Contact With A Laboratory-confir med COVID-19 While That Case Was Ill? No MIGRATION.[id number] 7476 Information not available 06/28/2022 In The 14 Days Before Symptom Onset, Have You Had Close Contact With A Person Who Is Under Investigation For COVID-19 While That Person Was Ill? No MIGRATION.815321 3533 Information not available 06/28/2022 What Type Of Diet Are You Following? REGULAR MIGRATION.632490 8572 Information not available 06/28/2022 What Is The Highest Grade Or Level Of School You Have Completed Or The Highest Degree You Have Received? [id number] MIGRATION.932485 1609 Information not available 06/28/2022 Have There Been Any Changes To Your Family Or Social Situation? No MIGRATION.756369 3761 Information not available 06/28/2022 Do You Use Insect Repellent Routinely? No MIGRATION.696167 8018 Information not available 06/28/2022 Where Do You Live? Condo MIGRATION.484871 4251 Information not available 06/28/2022 Do You Have A Medical Power Of Color Grinder? No MIGRATION.484144 6139 Information not available 06/28/2022 What Was The Date Of Your Most Recent Tobacco Screening? 04/10/2024 [email or web address] Information not available 04/10/2024 Do You Have Any Pets? Yes MIGRATION.810241 7355 Information not available 06/28/2022 What Is Your Relationship Status? MIGRATION.861314 5172 Information not available 06/28/2022 Do You Use Your Seat Belt Or Car Seat Routinely? Yes MIGRATION.206581 3949 Information not available 06/28/2022 Do You Have Smoke And Carbon Monoxide Detectors In Your Home? Yes MIGRATION.586159 9332 Information not available 06/28/2022 Are You Passively Exposed To Smoke? No MIGRATION.112287 9681 Information not available 06/28/2022 Are There Any Smokers In Your House? No MIGRATION.189933 3729 Information not available 06/28/2022 Do You Participate In Social Media? Yes MIGRATION.853787 6695 Information not available 06/28/2022 Do You Use Sunscreen Routinely? Yes MIGRATION.979523 7520 Information not available 06/28/2022 Has Tobacco Cessation Counseling Been Provided? No MIGRATION.908171 1942 Information not available 06/28/2022 Have You Recently Traveled Abroad? No MIGRATION.450649 4108 Information not available 06/28/2022 Are You Currently In School? No MIGRATION.655096 9828 Information not available 06/28/2022 Do You Have Any Dietary Restrictions? Yes No Spicy Foods MIGRATION.842791 4773 Information not available 06/28/2022 Sex: Female Functional Status Question Answer Note LastModified by Organizat [employer] Details LastModified Time Do you use any illicit or recreational drugs? No MIGRATION.098702 0927 Information not available 06/28/2022 Do you or have you ever used any other forms of tobacco or nicotine? No MIGRATION.719670 3332 Information not available 06/28/2022 What is your level of alcohol consumption? 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 Heavy daily, except weekends MIGRATION.403379 7433 Information not available 06/28/2022 Mental Status Question Answer Note LastModified by Organizat ion Details LastModified Time Do you feel stressed (tense, restless, nervous, or anxious, or unable to sleep at night)? [id number] MIGRATION.[id number] 6 Information not available 06/28/2022 Family History Relationship Description Onset Age of this Age Resolved Age Notes LastModified by Organization Details LastModified Time Mother Intracranial aneurysm 24 [id number] Not available 06/28/2022 15:15:21 Unspecified Relation Myocardial infarction on dads side MIGRATION.571 [id number] Not available 06/28/2022 15:15:21 Father Kidney disease [email or web address] Not available 2022 11:36:08 Medical History Condition Response ARTHRITIS Y ALLERGIES/HAYFEVER Y Gynecological HistoryNo gynecological history recorded. Obstetrics History GPAL:G 0 P 0 0 0 0 Immunizations Vaccine Type Date Status Note Provider Nam e and Address Organization Details Recorded Time Influenza, split virus, quadrivalent, PF 3 completed Jonas Blanco MD [address], [address], [facility] [employer] [facility] 02/19/2023 15:58:28 pneumococcal polysaccharide PPV23 3 completed Lazarus banks [facility] [employer] [facility] 04/03/2023 08:44:40 Influenza, split virus, trivalent, PF 4 completed Lazarus banks [facility] [employer] [facility] 01/21/2024 14:49:47 COVID-19 vaccine, vector-nr, rS-Ad26, PF, 0.5 mL 1 completed Not Available [facility] 06/28/2022 15:26:19 Influenza, split virus, trivalent, preservative 4 completed Not Available [facility] 06/28/2022 15:26:20 Tdap 1 completed Not Available [facility] 06/28/2022 15:26:20 Influenza, split virus, quadrivalent, PF 0 completed Not Available [facility] 06/28/2022 15:26:20 Influenza, split virus, quadrivalent, PF 7 completed Not Available [facility] 06/28/2022 15:26:20 Influenza, split virus, quadrivalent, PF 4 completed Not Available [facility] 06/28/2022 15:26:20 Influenza, split virus, quadrivalent, PF 2 completed Not Available [facility] 06/28/2022 15:26:20 Influenza, split virus, quadrivalent, PF 1 completed Not Available [facility] 06/28/2022 15:26:21 Influenza, split virus, quadrivalent, PF 8 completed Not Available [facility] 06/28/2022 15:26:21 Influenza, split virus, quadrivalent, PF 5 completed Not Available [facility] 06/28/2022 15:26:21 Past Encounters Encounter ID Performer Location Encounter Start Date Encounter Closed Date Diagnosis/Indication Diagnosis SNOMED-CT Code Diagnosis ICD10 Code Diagnosis IMO Codes Diagnosis Note [id number] Jonas Blanco MD [address] [address] 12/09/2020 00:00:00 12/09/2020 12:55:37 [id number] Jonas Blanco MD [address] [address] 12/23/2020 00:00:00 12/23/2020 16:32:43 [id number] Jonas Blanco MD [address] [address] 01/13/2021 00:00:00 01/13/2021 16:01:53 [id number] Jonas Blanco MD [facility]_[address] [address] 03/21/2021 00:00:00 03/21/2021 16:46:05 [id number] Jonas Blanco MD [facility]_[address] [address] 11/21/2021 00:00:00 11/21/2021 13:59:20 [id number] [facility] [place] [address] [place] [address] 12/26/2021 00:00:00 12/26/2021 18:24:24 [id number] Jonas Blanco MD [address] [address] 02/02/2022 00:00:00 02/02/2022 16:31:22 [id number] Jonas Blanco MD [address] [address] 03/02/2022 00:00:00 03/02/2022 16:35:11 [id number] Jonas Blanco MD [facility]_[address] [address] 02/19/2023 15:26:46 02/19/2023 16:07:19 Adult health examination 274850557 Z00.00 Obesity 426094746 E66.9 Chronic low back pain 27 9631556 M54.50 Administra tion of influenza vaccine 86544343 Z23 Pain of ri ght knee joint 7967477240 46064 M25.561 Pain in right foot 90213 63154 11742 M79.671 Sj gren's syndrome 88637417 M35.00 Systemic l upus erythematosus 81310802 M32.9 [id number] Jonas Blanco MD [facility] [address] 03/29/2023 15:46:31 03/29/2023 16:27:26 Obesity 920565194 E66.9 Chronic low back pain 27 2454681 M54.50 Pain of ri ght knee joint 3502408057 37039 M25.561 Pain in right foot 78273 39481 97513 M79.671 Sj gren's syndrome 38702743 M35.00 Systemic l upus erythematosus 60920268 M32.9 Idiopathic hypercalcemia 529982079 E83.52 Hyperlipidemia 42031603 E78.5 Hypertensive disorder 38 302795 I10 Gastroesop hageal reflux disease without esophagitis 711585109 K21.9 Active or passive immunization 510819945 Z23 Migraine without aura 56 887582 G43.842 [id number] Livan Albarado MD [facility] [place] [address] [place] [address] 04/25/2023 11:15:49 04/25/2023 13:20:26 Pain of right knee joint 6620615161 17135 M25.382 [id number] Livan Albarado MD [facility] [place] [address] [place] [address] 06/15/2023 11:57:31 06/15/2023 12:46:19 Osteoarthritis of right knee joint 5146489399 85536 M17.11 [id number] Redd Dickerson MD [facility] [place] [address] [place] [address] 08/03/2023 11:26:38 08/03/2023 11:50:44 Osteoarthritis of right knee joint 9483195154 57046 M17.11 Pain of ri ght knee joint 5230360889 90704 M25.289 [id number] Jonas Blanco MD [facility] [address] [place] [address] 01/21/2024 12:28:44 01/21/2024 12:58:56 Pain of right knee joint 3008523904 39778 M25.561 Pain in right foot 01471 61990 30448 M79.671 Chronic low back pain 27 4487414 M54.50 Idiopathic hypercalcemia 106984175 E83.52 Obesity 475892377 E66.9 Sj gren's syndrome 00046930 M35.00 Systemic l upus erythematosus 54712675 M32.9 Hyperlipidemia 74274747 E78.5 Hypertensive disorder 38 927707 I10 Gastroesop hageal reflux disease without esophagitis 176135941 K21.9 Migraine without aura 56 748225 G43.009 Pigmented skin lesion 20 9952856 L81.9 History an d physical examination, pre-employment 541796805 Z02.1 Administra tion of influenza vaccine 13049347 Z23 [id number] Jonas Blanco MD [facility]_[address] [address] 03/04/2024 09:46:14 03/04/2024 10:47:05 Pain of right knee joint 6395588014 81585 M25.561 Chronic Pain in right foot 23061 32716 08701 M79.671 Chronic Chronic low back pain 27 9967046 M54.50 Idiopathic hypercalcemia 358788288 E83.52 Obesity 978102661 E66.9 Sj gren's syndrome 90834489 M35.00 Systemic l upus erythematosus 26332120 M32.9 Hyperlipidemia 44210395 E78.5 Hypertensive disorder 38 074519 I10 Gastroesop hageal reflux disease without esophagitis 933284178 K21.9 Migraine without aura 56 375660 G43.009 Pigmented skin lesion 20 8003424 L81.9 Adult heal th examination 717730405 Z00.00 [id number] Joaquim Pham DPM [facility] [place] [address] [place] [address] 04/10/2024 16:34:43 04/25/2024 07:48:22 Pain of toe of right foot 0638198447 98176 M79.674 offloading soft toe shoe box recommende dfollow-up as needed Arthritis of joint of toe 385453153 M13.879 educated on conservati ve and surgical measuresPa tient elects to continue with conservati ve meansFollo w-up as needed if continues to be problemati c will likely require surgical excision of spur [id number] Jonas Blanco MD [address] [address] 05/19/2024 11:13:27 05/19/2024 11:45:19 Chronic low back pain 356830730 M54.50 Idiopathic hypercalcemia 094381206 E83.52 Pain of ri ght knee joint 1338572931 80927 M25.561 Chronic Pain in right foot 07593 67004 39064 M79.671 Chronic Obesity 857655377 E66.9 Sj gren's syndrome 32963138 M35.00 Systemic l upus erythematosus 47564239 M32.9 Hyperlipidemia 57861824 E78.5 Hypertensive disorder 38 469804 I10 Gastroesop hageal reflux disease without esophagitis 647011964 K21.9 Migraine without aura 56 699896 G43.009 Pigmented skin lesion 20 0134961 L81.9 Contusion of elbow 41143 004 S50.02XA Contusion of hip 2172544 7 S70.01XA [id number] Jonas Blanco MD [address] [address] 05/26/2024 14:02:35 05/26/2024 14:37:29 Sinusitis 38447711 J32.9 Rheumatoid arthritis 698 74514 M06.9 Seasonal a llergic rhinitis 229848382 J30.2 Sj gren's syndrome 28070292 M35.00 Systemic l upus erythematosus 15351290 M32.9 [id number] Jonas Blanco MD [address] [address] 05/28/2024 11:53:47 05/28/2024 12:58:50 Dental abscess 601782817 K04.7 3 small cysts? located sublingual , all <5 mmAdvised to [facility]U [facility] Wheezing symptom 8995493 08 R06.2 audible wheezing diffusely [id number] Jonas Blanco MD [address] [address] 10/06/2024 14:47:46 10/06/2024 15:32:05 Chronic low back pain 355917138 M54.50 Idiopathic hypercalcemia 054067002 E83.52 Pain of ri ght knee joint 0715098804 94649 M25.561 Chronic Pain in right foot 59208 96974 26715 M79.671 Chronic Obesity 150680619 E66.9 Sj gren's syndrome 53006598 M35.00 Systemic l upus erythematosus 16253002 M32.9 Hyperlipidemia 15641995 E78.5 Hypertensive disorder 38 671512 I10 Gastroesop hageal reflux disease without esophagitis 812961374 K21.9 Migraine without aura 56 000477 G43.009 Pigmented skin lesion 20 8716266 L81.9 Pain of le ft shoulder region 6924307448 M25.512 71583422 [id number] Joaquim Pham DPM [facility] [place] [address] [place] [address] 10/09/2024 15:19:50 10/13/2024 11:43:46 Pain of left heel 9274804640 222196 M79.672 43050704 Left Achil les tendinitis 7305193060 54618 M76.62 6835315 stretching and icing instructio ns reviewedNo strenuous activities Patient recommende d if she wants to work out get in a pool and swim, recumbent bike Calcaneal spur of left foot 9704060759 37002 M77.32 409916 rays reviewed with the patientoff loading recommende d [id number] Jonas Blanco MD [facility]_[address] [address] 12/09/2024 15:36:35 12/09/2024 16:21:17 Seen in department 607983637 Z76.89 [id number] Staff to get ED records and US result. Acute deep venous thrombosis of left peroneal vein 7602004585 1542775 I82.452 40185077 Acute rupt ure of Achilles tendon 233948033 S86.019A [id number] Lt Reduced mobility 0293805 Z74.09 [id number] Lt LE [id number] Jonas Balnco MD [facility] [place] [address] [place] [address] 02/04/2025 14:06:43 02/04/2025 15:14:24 Hyperlipidemia 68602150 E78.5 Chronic low back pain 27 7699028 M54.50 Idiopathic hypercalcemia 495596170 E83.52 Pain of ri ght knee joint 1032860361 02020 M25.561 Chronic Pain in right foot 73584 07574 67310 M79.671 Chronic Obesity 257390292 E66.9 Sj gren's syndrome 17957589 M35.00 Systemic l upus erythematosus 25353657 M32.9 Hypertensive disorder 38 676091 I10 Gastroesop hageal reflux disease without esophagitis 629985268 K21.9 Migraine without aura 56 726132 G43.009 Pigmented skin lesion 20 9272301 L81.9 Acute deep venous thrombosis of left peroneal vein 0150922566 6042772 I82.452 52592357 Health Concerns Section Related Observation LastModified by Organization Detai ls LastModified Time None Recorded Concern Status LastModified by Organization Details LastModified Time None Recorded Advance Directives Directive N: Payers Insurance Date Sequence Insurance Name Policy Number Policy Villeda Covered Member ID Villeda Member ID Guarantor Name 02/01/2025 1 [facility] [id number] Susan Resendizdarren [id number] Susan Davin 12/11/2024 [facility] Susan Jin Notes Date Note Type Note Provider Name and Address Organization Details Recorded Time 05/28/2024 text/html Susan Jin is a 53 year old female patient here today to FU on an illness She was seen by REGINO Rodriges on 05/26/24 and given ciprofloxacin 500 mg BID x 10 day for acute sinusitis. She has taken 3 doses of this so far. She states she has chest pressure, cough waking her from her sleep, worse when she eats, exhausted Concerns today with pain in her mouth and notes that there are abscesses in her mouth. Brisa Dumont, NOCTURNIST [address] [facility], [facility] [address], [place], [address], [facility] [employer] [facility] 05/28/2024 12:43:16 10/06/2024 text/html FUV + ACV: C/o Lt shoulder area pain for last couple months. Denies any recent fall/trauma. Pt did started with some heavy work outs at [facility]. Pt is here for f/u on her labs and chronic conditions. Doing overall well. Denies any problem with meds. Pt has not seen Derm & Endo yet. Pt is f/u with Ortho for her chronic Rt knee and joints pain. Pt has RA, SLE and Sjogren's syndrome and is f/u with Rheumat at [facility] for it.Pt has chronic migraine and her mom from brain aneurysm at the age of 24 yrs. Pt has never seen any Neuro for this and had CT head done when she was with [facility] about 12 weeks, but she doesn't know any results of it and it was about 7-8 yrs ago. Pt's insurance declined for MRI of brain. Jonas Blanco MD [facility] [facility] [address], [place], [address], [employer] 10/06/2024 15:20:05 10/09/2024 text/html . Patient is a 54-year-old female she presents the office with complaints of left heel pain. Patient denies any open wounds, bruising, injury. Patient states when she is walking she has increased pain she states it is at the attachment of her Achilles. Patient states when she is walking it becomes more painful. Patient states she has a lot of discomfort after she gets up from rest. Patient denies any other complaints. Joaquim Pham DPM [address] [employer], [place], [address], [employer] 10/13/2024 09:32:40 12/09/2024 text/html Telephone visit.ACV. Pt has Lt achilles tendon rupture and she was seen in ED last week for it and she saw her Ortho at [facility] yesterday and they did Lt LE US and she is peroneal vein DVT on that. So Ortho's office called us and they want us to manage her Lt LE DVT. Besides Lt leg pain and non-wt bearing, pt is feeling well. Denies any chest pain/sob/palpitatio ns/fever/chills/n/v /d. Jonas Blanco MD [address], [place], [address], [employer] 12/09/2024 15:56:48 02/04/2025 text/html Pt is here for f/u on her meds and chronic conditions. Doing overall better. Denies any problem with meds. Pt is f/u with Ortho for her chronic Lt shoulder pain and she is also seeing Neuro for her chronic neck pain and she will be going for EMG with them. Pt is f/u with Ortho for her Lt Achilles tendon rupture and she is doing PT with them. Pt has not seen Derm & Endo yet. Pt is f/u with Ortho for her chronic Rt knee and joints pain. Pt has RA, SLE and Sjogren's syndrome and is f/u with Rheumat at [facility] for it.Pt has chronic migraine and her mom from brain aneurysm at the age of 22 yrs. Pt has never seen any Neuro for this and had CT head done when she was with [place] about 12 weeks, but she doesn't know any results of it and it was about 7-8 yrs ago. Pt's insurance declined for MRI of brain. Jonas Blanco MD [address], [facility] [address], [place], [address], [employer] 02/04/2025 14:34:48 OBGyn Episode No OBEpisode recorded.
== END 2025-03-05 13:32 | disposition home or self-care (01) ==
PROVIDERS: PCP Family Medicine; Visit Provider Family Medicine
DX: I82.452 Acute embolism and thrombosis of left peroneal vein (principal)
CPT/HCPCS: 93971